=== PATIENT | female | born 1960 | race Caucasian/White ===

== ENCOUNTER 2020-01-13 17:16 | Emergency (ER) | payer SELFPAY ==
[2020-01-13 17:21] VITALS: BP 173/100; PULSE 93; RESP 18; TEMP 36.9; O2SAT 96; BMI 28.5
--- NOTE | 2020-01-13 17:32 | ED_ITS ---
HPI - Fall General: Chief Complaint: Fall Stated Complaint: fall/hit head Time Seen by Provider: 01/13/20 17:27 Source: patient Mode of arrival: ambulatory Limitations: no limitations History of Present Illness: HPI Narrative: Patient reports tripping over her dog's leash 2 days ago and landing striking her left forehead. Patient has some ecchymosis to bilateral eyes with minimal swelling. Patient reports headache and pain with episodes of dizziness. Patient is supposed be on blood pressure medication but does not take it. Patient denies any chest pain, nausea vomiting. Associated symptoms-after fall: Reports headache(s) Review of Systems General: Reports: 10 or more systems reviewed and unremarkable except in HPI and below Neuro: Reports: headache(s) and dizziness Physical Exam Const: COMMON NORMALS: no acute distress and patient oriented x3 GENERAL APPEARANCE: cooperative HENMT: COMMON NORMALS: TM's normal bilaterally and Normal external nose present HEAD & SCALP: other (ecchymosis leana. eye, tenderness left brow) NOSE: Normal external nose present TYMPANIC MEMBRANE: TM's normal bilaterally MOUTH: Normal oral and palatal mucosa present THROAT: posterior oropharynx normal Eye: GENERAL EYE: appearance normal, both eyes and all related structures Neck/C-Spine: COMMON NORMALS: full ROM Lymph: LYMPHATIC: no lymphadenopathy noted Chest: COMMONS NORMALS: normal inspection of the chest Resp: COMMON NORMALS: normal respiratory effort EFFORT & INSPECTION: Yes able to speak in complete sentences Cardio: COMMON NORMALS: regular rate and regular rhythm RATE: regular rate RHYTHM: regular rhythm GI: COMMON NORMALS: non-tender Back/Pelvis: COMMON NORMALS: thoracic and lumbar spine normal to inspection Extremity: COMMON NORMALS: normal to inspection Neuro: COMMON NORMALS: patient oriented x3 and moves all extremities Psych: COMMON NORMALS: mental status grossly normal and cooperative Skin: COMMON NORMALS: no rashes or lesions noted GENERAL SKIN EXAM: no rashes or lesions noted Course Vital Signs: Vital signs: Vital Signs Temperature 98.5 F 01/13/20 17:21 Pulse Rate 93 01/13/20 17:21 Respiratory Rate 18 01/13/20 17:21 Blood Pressure 173/100 01/13/20 17:21 Pulse Oximetry 96 01/13/20 17:21 MDM - Fall MDM Narrative: Medical decision making narrative: Patient comes in today with complaints of contusion to the left side of the forehead. Patient has bruising and mild swelling to the left brow region. Pupils are equal and reactive. Patient moves without any difficulty. No facial palsy. No tongue deviation. Respirations are even lungs are clear to auscultation. No vertebral tenderness of the neck. Reviewed exam with patient recommendations for treatment and follow-up. Differential diagnosis includes contusion, fracture, intracranial bleeding. Patient reported care plan with recommendations for treatment of contusions. Discharge Plan Discharge Patient Disposition: Home Clinical Impression: Contusion of head Qualifiers: Encounter type: initial encounter Contusion of head detail: periocular area Laterality: left Qualified Code(s): S00.12XA - Contusion of left eyelid and periocular area, initial encounter Condition: Stable Prescriptions: No Action amoxicillin See Rx Instructions .ROUTE .COMPLEX RF: 0 Discharge Orders: Discharge Order (Routine); Ordered 01/13/20 Ordered By: David Aguilar Discharge Diet: Usual diet Discharge Activity: Increase activity as tolerated Patient Instructions: Contusion in Adults (ED) Activity Restrictions/Additional Instructions: Activity as tolerated. Drink plenty of fluids. Acetaminophen or ibuprofen for pain. Follow-up with primary care relating elevation in blood pressure. Return to the emergency room as needed for new concerns. Coding Level of Care Code ED [employer] for Tia Valles Exam Comprehensive
--- NOTE | 2020-01-13 17:32 | CTR_ITS ---
PROCEDURE INFORMATION: Exam: CT Maxillofacial Without Contrast Exam date and time: 01/13/2020 5:37 PM Age: 59 years old Clinical indication: Injury or trauma; Fall; Initial encounter; Blunt trauma (contusions or hematomas); Forehead and orbit/periorbital; Bilateral; Additional info: Fall injury TECHNIQUE: Imaging protocol: Computed tomography images of the face without contrast. Radiation optimization: All CT scans at this facility use at least one of these dose optimization techniques: automated exposure control; mA and/or kV adjustment per patient size (includes targeted exams where dose is matched to clinical indication); or iterative reconstruction. COMPARISON: No relevant prior studies available. RADIATION DOSE METRICS: Total DLP (mGy-cm): 722.51 FINDINGS: Orbits: Orbits are normal. Globes are unremarkable. Bones/joints: No acute fracture. Paranasal sinuses: Normal. No air-fluid levels. Soft tissues: Small left periorbital and frontal scalp contusion. CT/CT facial bones wo con* [id number] IMPRESSION: No fracture identified. Radiation Dose CTDIVOL = (mGy): DLP = 722.51 (mGy-cm)
--- NOTE | 2020-01-13 17:32 | CTR_ITS ---
PROCEDURE INFORMATION: Exam: CT Head Without Contrast Exam date and time: 01/13/2020 5:37 PM Age: 59 years old Clinical indication: Injury or trauma; Fall TECHNIQUE: Imaging protocol: Computed tomography of the head without contrast. Radiation optimization: All CT scans at this facility use at least one of these dose optimization techniques: automated exposure control; mA and/or kV adjustment per patient size (includes targeted exams where dose is matched to clinical indication); or iterative reconstruction. COMPARISON: No relevant prior studies available. RADIATION DOSE METRICS: Total DLP (mGy-cm): 764.49 FINDINGS: Brain: The sulci are within normal limits. Mild hypodensities in supratentorial periventricular white matter. 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 No intracranial hemorrhage. Cerebral ventricles: No ventriculomegaly. Bones/joints: Unremarkable. No acute fracture. Paranasal sinuses: Visualized sinuses are unremarkable. No fluid levels. Mastoid air cells: Visualized mastoid air cells are well aerated. Vasculature: No hyperdense artery. Soft tissues: Small left periorbital and frontal scalp contusion suspected. CT/CT head wo con* [id number] IMPRESSION: 1. No fracture or intracranial hemorrhage. 2. Small left periorbital and frontal scalp contusions suspected. 3. Mild microangiopathy. Radiation Dose CTDIVOL = (mGy): DLP = 764.49 (mGy-cm)
[2020-01-13 18:36] VITALS: BP 164/90; PULSE 86; RESP 16; O2SAT 98
== END 2020-01-13 18:37 | disposition home or self-care (01) ==
PROVIDERS: Emergency Provider Nurse Practitioner Family
DX: S00.12XA Contusion of left eyelid and periocular area, initial encounter (principal); W18.09XA Striking against other object with subsequent fall, initial encounter
CPT/HCPCS: 12345; 70450; 70486; 99281; 99282

== ENCOUNTER 2020-09-11 12:04 | Emergency (ER) | payer SELFPAY ==
[2020-09-11 12:11] VITALS: BP 156/92; PULSE 89; RESP 16; TEMP 36.3; O2SAT 95; BMI 27.4
[2020-09-11 12:15] VITALS: BP 156/92; PULSE 92; RESP 18; O2SAT 95
--- NOTE | 2020-09-11 12:26 | PC.PHAR ---
pt states she use to take lisinopril and hasnt taken in months-pt states she has only been taking hair skin and nails -pt states she finished the amoxil 500mg tid filled on 08/27/20 10d/s
--- NOTE | 2020-09-11 12:28 | CT_ITS ---
WS: [id number] CT HEAD WITH AND WITHOUT CONTRAST HISTORY: CVA/Vision disturbance TECHNIQUE: Noncontrast 2.5 mm axial images obtained from the vertex to the skull base. Additional ramana ging performed at 2.5 mm axial images status post IV contrast. Bone and soft tissue windows are revie wed. All CT scans at [facility] use at least one of these dose optimization techniques: a utomated exposure control; mA and/or kV adjustment per patient size (includes targeted exams where do se is matched to clinical indication); or iterative reconstruction. CONTRAST: Omnipaque 300; 95 mL IV. DLP: 1060.47 mGy.cm COMPARISON: 01/13/2020 No acute intracranial hemorrhage, edema or midline shift. No midline shift. Prior RIGHT caudate lacun ar infarcts. No enhancing mass or vascular malformations identified. No abnormality noted at the sella turcica or optic chiasm. No aneurysm. Dural venous sinuses are normally enhancing. Visualized [place] is unremarkable. Paranasal sinuses as visualized: Clear. Mastoid air cells: Clear. Calvarium and scalp: Intact. CT/CT head wo/w con [id number] IMPRESSION: 1. No acute intracranial hemorrhage or edema. 2. No enhancing masses. No aneurysm or mass near the optic chiasm. 3. Prior lacunar infarct RIGHT caudate nucleus.
--- NOTE | 2020-09-11 12:32 | W.ED.GENADLT ---
HPI - General Adult General: Chief complaint: General Medical Stated complaint: vision disturbances, sore throat Time Seen by Provider: 09/11/20 12:23 Source: patient and RN notes reviewed Limitations: no limitations History of Present Illness: HPI narrative: This patient is a 60-year-old female who presents to the emergency department complaint of visual disturbance. 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 States yesterday where she started having a vision defect. Patient does have a long history of reading with readers only but has not had no vision loss. Patient states that she cannot seem to see in certain areas of her visual field. Patient denies headache or history of headaches. Denies any significant medical problems. Will do medical evaluation treat as needed. Onset (ago): day(s) Location: eyes Radiation: non-radiation Relieving factors: none Associated symptoms: Deny chest pain, dyspnea, headache(s), nausea, rash, palpitations or vomiting Review of Systems General: Reports: 10 or more systems reviewed and unremarkable except in HPI and below Const: Denies: fever(s), chills, body aches or fatigue Eyes: Reports: change in vision and blind spots; Denies: blurry vision ENMT: Denies: throat pain, hoarseness or mouth pain Card: Denies: chest pain, palpitations, irregular heart rhythm, edema, swelling of feet/ankles or lightheadedness Resp: Denies: dyspnea, productive cough, non-productive cough, wheezing or pain on inspiration GI: Denies: abdominal pain, nausea or vomiting : Denies: flank pain, difficulty voiding, dysuria, urinary frequency, urinary urgency or urinary hesitancy Musc: Denies: neck pain, back pain, extremity pain, extremity swelling, joint pain, joint swelling, joint redness, joint warmth or limited range of motion Skin/Breast: Denies: rash, pruritus, erythema or skin tenderness Neuro: Denies: headache(s), numbness in extremities or weakness in extremities Psych: Denies: anxiety or depression PFSH ED PFSH: Social History Smoking and tobacco status: never smoked Alcohol intake: never Substance/Drug Use: never Physical Exam Const: COMMON NORMALS: no acute distress, average body habitus, patient oriented x3, no limitations, healthy appearing, alert and well nourished HENMT: COMMON NORMALS: normocephalic, atraumatic, hearing grossly normal bilaterally, external ears normal, EAC's normal, TM's normal bilaterally, Normal external nose present, Normal nasal mucous membranes and turbinates present, moist oral mucous membranes, oropharynx normal, dentition normal and gingiva normal HEAD & SCALP: normocephalic and atraumatic NOSE: Normal external nose present and Normal nasal mucous membranes and turbinates present EXTERNAL EAR: Yes external ears normal EXTERNAL AUDITORY CANAL: EAC's normal TYMPANIC MEMBRANE: TM's normal bilaterally Eye: COMMON NORMALS: Equal, round and reactive pupils present and conjunctivae normal ALIGNMENT: Yes alignment normal PERIORBITAL: periorbital findings normal EYELID: eyelids normal CONJUNCTIVA: Yes conjunctivae normal SCLERA: sclerae normal CORNEA: Yes corneas normal PUPIL: Yes Equal, round and reactive pupils present OTHER: Patient has hemianopsia affecting both eyes to the right side of each visual field. Of the vertical. See picture below EYE IMAGES: 1. Right lateral defect in visual field 2. Right lateral defect and vision field Neck/C-Spine: COMMON NORMALS: full ROM, no lymphadenopathy, supple, no meningeal signs, no JVD, Thyroid normal and No carotid bruits THYROID: Thyroid normal Chest: COMMONS NORMALS: normal inspection of the chest, normal palpation of entire chest wall, normal inspection of the breasts and normal palpation of the breasts Breast/axilla inspection: Yes normal inspection of the breasts BREAST/AXILLA PALPATION: Yes normal palpation of the breasts Resp: COMMON NORMALS: normal respiratory effort, No retractions, No use of accessory muscles, clear to auscultation bilaterally and percussion normal AUSCULTATION: clear to auscultation bilaterally PERCUSSION: percussion normal Cardio: COMMON NORMALS: no JVD, regular rate, regular rhythm, S1 normal heart sound present, S2 normal heart sound present, No gallops present (Cardio), No clicks present (Cardio), No murmurs present (Cardio), No rub (Cardio) and Peripheral pulses 2+ throughout RATE: regular rate RHYTHM: regular rhythm HEART SOUNDS: S1 normal heart sound present and S2 normal heart sound present PERIPHERAL PULSES: Peripheral pulses 2+ throughout GI: COMMON NORMALS: Normal to inspection, nondistended, normoactive bowel sounds present, Soft to palpation, non-tender, No hepatosplenomegaly present, no masses and no bruits PALPATION: Yes Soft to palpation and Yes No hepatosplenomegaly present : COMMON NORMALS: Yes no CVA tenderness, Yes normal external appearance, Yes normal appearance of the vagina, Yes normal appearance of the cervix, Yes normal bimanual exam, Yes No adnexal tenderness and Yes no masses BLADDER/KIDNEY EXAM: Yes no CVA tenderness BIMANUAL EXAM - VAGINA & UTERUS: Yes normal bimanual exam Back/Pelvis: COMMON NORMALS: no CVA tenderness, thoracic and lumbar spine normal to inspection, no thoracic nor lumbar tenderness, thoraco-lumbar ROM normal and straight leg raise negative bilaterally Extremity: COMMON NORMALS: normal to inspection, full ROM, capillary refill normal, no joint enlargement, no clubbing, cyanosis or edema, no calf tenderness and no pedal edema Neuro: COMMON NORMALS: patient oriented x3 SENSORIUM/ORIENTATION: Yes alert MENINGEAL SIGNS: Yes no meningeal signs Course Reevaluation(s): Reevaluation #1: Patient states visual field defect is still present. Patient described that yesterday she thought she had a little sinus headache but then resolved and went to bed. Woke up and had vision changes as they are now. Time: 13:53 Reevaluation #2: Patient states understanding of all instructions given by Dr. Kelly. Time: 17:09 Consultations: Consultation #1: I did discuss at length with Dr. Kelly neurology she request that we do a stat MRA of the head and neck with contrast. She states she will see the patient. Time: 13:53 Consultation #2: Neurology to see patient. Dr. Kelly will see patient shortly. Time: 15:56 Consultation #3: Dr. Kelly requested the patient be discharged home on aspirin and Plavix we ordered an event monitor patient placed on Lipitor and have an MRI as an outpatient tomorrow as an outpatient patient is to follow-up with Dr. Kelly within the week. Time: 17:09 Vital Signs: Vital signs: Vital Signs Temperature 97.3 F L 09/11/20 12:11 Pulse Rate 84 09/11/20 14:01 Respiratory Rate 18 09/11/20 12:47 Blood Pressure 155/108 09/11/20 14:01 Pulse Oximetry 96 09/11/20 14:01 MDM - General Adult MDM Narrative: Medical decision making narrative: This patient is a 60-year-old female who presents to the emergency department complaint of visual disturbance. 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 States yesterday where she started having a vision defect. Patient does have a long history of reading with readers only but has not had no vision loss. Patient states that she cannot seem to see in certain areas of her visual field. Patient denies headache or history of headaches. Denies any significant medical problems. Medical Records: Attestation: I reviewed the patient's medical records. Lab Data: Attestation: I reviewed the patient's lab results. Labs: Lab Results 09/11/20 09/11/20 09/11/20 Range/Units 12:39 12:39 12:45 WBC 6.7 (4.0-10.0) 10^3/ uL RBC 5.03 (4.1-5.3) 10^6/u L Hgb 15.0 (11.5-15.3) g/dL Hct 43.4 (37.0-47.0) % MCV 86.3 (81-99) fL MCH 29.8 (28.0-34.0) pg MCHC 34.6 (30.0-36.0) g/dL RDW 11.7 L (12.1-15.1) % Plt Count 267 (130-400) 10^3/c mm MPV 11.2 H (7.4-10.4) fL Neut % (Auto) 60.4 % Lymph % (Auto) 30.4 % [place] % (Auto) 6.3 % Eos % (Auto) 2.1 % Baso % (Auto) 0.7 % Neut # (Auto) 4.04 (1.8-7.7) 10^3/u L Lymph # (Auto) 2.0 (0.8-4.8) 10^3/u L [place] # (Auto) 0.4 (0.2-0.9) 10^3/u L Eos # (Auto) 0.1 (0.0-0.8) 10^3/u L Baso # (Auto) 0.1 (0.0-0.1) 10^3/u L Nucleated RBC % (a uto) 0 % Nucleated RBCs # 0.0 /100WBC PT 13.00 (12.1-14.9) SECO NDS INR 0.96 (0.8-1.2) APTT 27.6 (23.9-36.7) SECO NDS Sodium 135 L (136-145) mmol/L Potassium 4.3 (3.5-5.1) mmol/L Chloride 99 (98-107) mmol/L Carbon Dioxide 24 (22-29) mmol/L Anion Gap 16.3 (5-19) BUN 9 (6-20) mg/dL Creatinine 0.4 L (0.5-0.9) mg/dL GFR Calculation 163.4 H (90-130) mL/min Glucose 350 H (65-115) mg/dL Calculated Osmolal ity 293 (285-295) mOsm/k g Calcium 9.0 (8.5-10.5) mg/dL Total Bilirubin 0.6 (0.15-1.2) mg/dL AST 15 (0-32) U/L ALT 17 (0-33) U/L Alkaline Phosphata se 103 (35-105) IU/L Total Protein 6.8 (6.6-8.7) g/dL Albumin 4.1 (3.5-5.2) g/dL Globulin 2.7 (1.3-4.6) g/dL Urine Color (Yellow) Urine Appearance (CLEAR) Urine pH (5-7) Ur Specific Gravit y (1.005-1.030) Urine Protein (Negative) Urine Glucose (UA) (Normal) Urine Ketones (Negative) Urine Blood (Negative) Urine Nitrate (Negative) Urine Bilirubin (Negative) Urine Urobilinogen (Negative) mg/dL Ur Leukocyte Zenia ase (Negative) Urine RBC (0-2) /hpf Urine WBC (0-5) /hpf Ur Squamous Epith Cells (0-5) /hpf Amorphous Sediment Urine Bacteria (NONE) /hpf Urine Opiates Scre en (Negative) ng/mL Ur Barbiturates Sc reen (Negative) ng/mL Ur Phencyclidine S crn (Negative) ng/mL Ur Amphetamines Sc reen (Negative) ng/mL U Benzodiazepines Scrn (Negative) ng/mL Urine Cocaine Scre en (Negative) ng/mL U Marijuana (THC) Screen (Negative) ng/mL 05/24/21 05/24/21 Range/Units 12:45 12:45 WBC (4.0-10.0) 10^3/ uL RBC (4.1-5.3) 10^6/u L Hgb (11.5-15.3) g/dL Hct (37.0-47.0) % MCV (81-99) fL MCH (28.0-34.0) pg MCHC (30.0-36.0) g/dL RDW (12.1-15.1) % Plt Count (130-400) 10^3/c mm MPV (7.4-10.4) fL Neut % (Auto) % Lymph % (Auto) % [place] % (Auto) % Eos % (Auto) % Baso % (Auto) % Neut # (Auto) (1.8-7.7) 10^3/u L Lymph # (Auto) (0.8-4.8) 10^3/u L [place] # (Auto) (0.2-0.9) 10^3/u L Eos # (Auto) (0.0-0.8) 10^3/u L Baso # (Auto) (0.0-0.1) 10^3/u L Nucleated RBC % (a uto) % Nucleated RBCs # /100WBC PT (12.1-14.9) SECO NDS INR (0.8-1.2) APTT (23.9-36.7) SECO NDS Sodium (136-145) mmol/L Potassium (3.5-5.1) mmol/L Chloride (98-107) mmol/L Carbon Dioxide (22-29) mmol/L Anion Gap (5-19) BUN (6-20) mg/dL Creatinine (0.5-0.9) mg/dL GFR Calculation (90-130) mL/min Glucose (65-115) mg/dL Calculated Osmolal ity (285-295) mOsm/k g Calcium (8.5-10.5) mg/dL Total Bilirubin (0.15-1.2) mg/dL AST (0-32) U/L ALT (0-33) U/L Alkaline Phosphata se (35-105) IU/L Total Protein (6.6-8.7) g/dL Albumin (3.5-5.2) g/dL Globulin (1.3-4.6) g/dL Urine Color Yellow (Yellow) Urine Appearance Sl hazy (CLEAR) Urine pH 5 (5-7) Ur Specific Gravit y 1.015 (1.005-1.030) Urine Protein Neg (Negative) Urine Glucose (UA) 4+ H (Normal) Urine Ketones Negative (Negative) Urine Blood 2+ H (Negative) Urine Nitrate Negative (Negative) Urine Bilirubin Neg (Negative) Urine Urobilinogen Norm (Negative) mg/dL Ur Leukocyte Zenia ase Trace H (Negative) Urine RBC 0-4 H (0-2) /hpf Urine WBC 5-10 H (0-5) /hpf Ur Squamous Epith Cells 10-15 H (0-5) /hpf Amorphous Sediment Not Reportable Urine Bacteria 3+ H (NONE) /hpf Urine Opiates Scre en Negative (Negative) ng/mL Ur Barbiturates Sc reen Negative (Negative) ng/mL Ur Phencyclidine S crn Negative (Negative) ng/mL Ur Amphetamines Sc reen Negative (Negative) ng/mL U Benzodiazepines Scrn Negative (Negative) ng/mL Urine Cocaine Scre en Negative (Negative) ng/mL U Marijuana (THC) Screen Negative (Negative) ng/mL Imaging Data^: CT Head: Attestation: I personally reviewed and interpreted this imaging study as follows: Radiologist's impression: IMPRESSION: 1. No acute intracranial hemorrhage or edema. 2. No enhancing masses. No aneurysm or mass near the optic chiasm. 3. Prior lacunar infarct RIGHT caudate nucleus. MRA/MRI: Attestation: I personally reviewed and interpreted this imaging study as follows: My impression: Discussed with Dr. Kelly neurology she will see patient so far negative for acute findings. Radiologist's impression: Negative for acute findings Discharge Plan Discharge Patient Disposition: Home Clinical Impression: Hemianopia, Diabetes Condition: Stable Prescriptions: New Adult Aspirin Regimen 81 mg tablet,delayed release (DR/EC) 81 mg PO DAILY Qty: 30 RF: 0 Plavix 75 mg tablet 75 mg PO DAILY Qty: 30 RF: 0 Lipitor 20 mg tablet 20 mg PO DAILY Qty: 30 RF: 0 metformin 850 mg tablet 850 mg PO DAILY Qty: 30 RF: 0 No Action Hair,Skin and Nails Tablet 1 tab PO DAILY RF: 0 Discharge Orders: Discharge ED (Routine); Ordered 09/11/20 Ordered By: Adrian Gant Other Ambulatory Orders: CV carotid duplex BI* [id number] (Routine) Timeframe: 3 Days Facility: [facility] - Location: Radiology Art Kenn VELASQUEZ Ordered By: Adrian Gant [place] cardiac event monitor (Routine) Timeframe: 3 Days Facility: [facility] - Location: Cardiac Diagnostic Laboratory Ordered By: Adrian Gant Referrals: Adrian Gant MD [Emergency Provider] - Ayana Kelly MD [Physician] - Jing Calzada DO [Physician] - Discharge Diet: Diabetic Discharge Activity: Limit activity as instructed Patient Instructions: Opioid Safety Activity Restrictions/Additional Instructions: Take your medications as instructed. Monitor glucose closely monitor diet. You should be having a MRI of the brain scheduled as an outpatient tomorrow. Along with other tests as discussed by Dr. Kelly. Follow-up with Dr. Kelly within 5 days. Follow-up with nurse practitioner Zheng in a few days. Coding Level of Care Code ED Transportation Planning Technician for Chg Fwd Exam Comprehensive
[2020-09-11 12:47] VITALS: BP 156/92; PULSE 90; RESP 18; O2SAT 95
[2020-09-11 12:49] LABS: Basophils # 0.1 10^3/uL (0.0-0.1); Basophils % 0.7 %; Eosinophils # 0.1 10^3/uL (0.0-0.8); Eosinophils % 2.1 %; Hematocrit 43.4 % (37.0-47.0); Lymphocytes % 30.4 %; Mean Corpuscular HGB Conc 34.6 g/dL (30.0-36.0); Mean Corpuscular Hemoglobin 29.8 pg (28.0-34.0); Mean Corpuscular Volume 86.3 fL (81-99); Mean Platelet Volume 11.2 fL (7.4-10.4); Monocytes # 0.4 10^3/uL (0.2-0.9); Monocytes % 6.3 %; Neutrophils # 4.04 10^3/uL (1.8-7.7); Neutrophils % 60.4 %; Nucleated Red Blood Cells % 0 %; Platelet Count 267 10^3/cmm (130-400); Red Blood Count 5.03 10^6/uL (4.1-5.3); Red Cell Distribution Width 11.7 % (12.1-15.1); White Blood Count 6.7 10^3/uL (4.0-10.0)
[2020-09-11] MEDS: iohexol 300 mg/mL 100 mL Btl IV (13:01)
[2020-09-11 13:04] LABS: INR 0.96 (0.8-1.2); Partial Thromboplastin Time 27.6 SECONDS (23.9-36.7)
[2020-09-11 13:10] LABS: Alanine Aminotransferase 17 U/L (0-33); Albumin Level 4.1 g/dL (3.5-5.2); Alkaline Phosphatase 103 IU/L (35-105); Anion Gap 16.3 (5-19); Aspartate Amino Transferase 15 U/L (0-32); Blood Urea Nitrogen 9 mg/dL (6-20); Carbon Dioxide 24 mmol/L (22-29); Chloride 99 mmol/L (98-107); Globulin 2.7 g/dL (1.3-4.6); Glomerular Filtration Rate 163.4 mL/min (90-130); Glucose 350 mg/dL (65-115); Osmolality Calculated 293 mOsm/kg (285-295); Potassium 4.3 mmol/L (3.5-5.1); Sodium 135 mmol/L (136-145); Total Bilirubin 0.6 mg/dL (0.15-1.2); Total Protein 6.8 g/dL (6.6-8.7)
[2020-09-11 13:12] LABS: Add Urine Microscopic? YES; Bilirubin Urine Neg (Negative); Blood Urine 2+ (Negative); Glucose Urine UA 4+ (Normal); Ketones Urine Negative (Negative); Leukocyte Esterase Urine Trace (Negative); Nitrate Urine Negative (Negative); Protein Urine Neg (Negative); Specific Gravity, Urine 1.015 (1.005-1.030); Urine Appearance SL Hazy (CLEAR); Urine Color Yellow (Yellow); Urobilinogen Urine Norm (Negative); pH Urine 5 (5-7)
[2020-09-11 13:13] LABS: Bacteria Urine 3+ /hpf
[2020-09-11 13:16] LABS: Add Urine Culture? No; Amphetamines Screen Urine Negative (Negative); Barbiturates Screen Urine Negative (Negative); Benzodiazepines Screen Urine Negative (Negative); Cocaine Screen Urine Negative (Negative); Opiate Screen Urine Negative (Negative); PCP Screen Urine Negative (Negative); RBC Urine 0-4 /hpf (0-2); THC Screen Urine Negative (Negative)
--- NOTE | 2020-09-11 13:50 | MR_ITS ---
WS: [id number] MRA CAROTID ARTERIES HISTORY: Hemianopsia COMPARISON: None available. TECHNIQUE: MRA is performed with intravenous gadolinium. MIP and source images are reviewed. This is a nondiagnostic examination for significant carotid artery stenosis. There is overlapping eleazar ous and arterial flow making this examination nondiagnostic. Cannot exclude significant stenosis or d issection. MR/MR angio neck w con* [id number] IMPRESSION: Nondiagnostic evaluation of the carotid arteries.
--- NOTE | 2020-09-11 13:50 | MR_ITS ---
WS: [id number] MRA ANGIOGRAPHY [place] HISTORY: Hemianopsia COMPARISON: None available. TECHNIQUE: 3-D MR angiography is performed of the [place]. All images are reviewed including source images. Distal vertebral and basilar arteries are intact with no significant stenosis or plaque. Posterior ce rebral arteries are normal course and caliber. Posterior communicating arteries are both patent. Intracranial portion of the internal carotid arteries are normal course and caliber. No significant a therosclerosis, stenosis or aneurysm identified. Middle and anterior cerebral arteries are both paten t with no significant disease. Anterior communicating artery is also normal. MR/MR angio head wo con [id number] IMPRESSION: Normal MRA [place].
[2020-09-11 14:01] VITALS: BP 155/108; PULSE 84; O2SAT 96
--- NOTE | 2020-09-11 17:00 | PM.CONSULT ---
Providers/Reason For Consult Consulting Physican/Specialty*: Adrian Gant MD/emergency department Reason for Consult*: Acute stroke Primary Care Provider: None History of Present Illness History of Present Illness Kim Lara is a 60 year old female who presented with right homonymous hemianopsia. She was complaining of a headache. 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 She worked Friday night at [employer] and then went into her workplace yesterday morning and discovered that she was bumping up against another employee as she walked by. The employee was unhappy and said did not you see me and she realized that she did not. By the time she had failed to improve this morning she decided to come to the ER and be evaluated. Her CT scan of the head was unremarkable. The emergency physician called me about what appeared to him to be an homonymous hemianopsia of unknown time of onset with negative CT and I asked for an MRI with MRA. Only the MRA was completed due to miscommunication but the consulting utility forester films do not show any abnormalities. The patient feels the same as she did yesterday. She is sure that she has not bumped into people when she was working at [employer] before but she is not sure she did not have the trouble Friday night. She has lost a lot of weight. She knows that she has hypertension but she has not been keeping track of her blood pressure and she does not have a family physician. Her blood pressure was 155/108 today. She is not diabetic. She is lost 40 pounds by effort and a lot of activity. She exercises every day. Review of Systems General: Reports: 10 or more systems reviewed and unremarkable except in HPI and below Const: Reports: change in weight; Denies: fever(s) or body aches Eyes: Reports: change in vision ENMT: Denies: disequilibrium Card: Denies: chest pain, palpitations, irregular heart rhythm or lightheadedness Resp: Reports: other (She is a non smoker); Denies: dyspnea GI: Denies: abdominal pain, nausea or vomiting : Denies: difficulty voiding Musc: Denies: neck pain or back pain Neuro: Reports: headache(s); Denies: numbness in extremities, weakness in extremities, sensory changes, lack of coordination or difficulty walking Psych: Denies: anxiety or depression Endo: Denies: polyuria or polydipsia Heriberto/Lymph: Denies: easy bruising Meds/Allergies Home Medications and Allergies Home Medications Medication Instructions Recorded Confirmed Last Taken Type multivitamin with minerals 1 tab PO DAILY 09/11/20 09/11/20 09/11/20 09:00 History [Hair,Skin and Nails] Allergies Allergy/AdvReac Type Severity Reaction Status Date / Time No Known Allergies Allergy Verified 09/11/20 12:26 PFSH Acute PFSH: Social History Smoking and tobacco status: never smoked Alcohol intake: never Substance/Drug Use: never Vitals/I&O/Wt Last Vital Signs Temp 97.3 F L 09/11/20 12:11 Pulse 84 09/11/20 14:01 Resp 18 09/11/20 12:47 BP 155/108 09/11/20 14:01 Pulse Ox 96 09/11/20 14:01 Weight last 48 hrs Weight 160 lb Physical Exam Narrative: EXAM NARRATIVE: GENERAL: The patient was well-nourished with a healthy appearance and appropriately groomed. MENTAL STATUS: Orientation was full to 10 of 10 questions of orientation. Speech was fluent without word hesitation. No difficulty following a complex command. The affect was euthymic. CRANIAL NERVES: She has a right upper quadrantanopsia, homonymous with inclusion of the macula. She has a right homonymous inferior quadrantanopsia with sparing of the macula. Extraocular movements were full without nystagmus. Both slow pursuit and saccadic eye movements were normal. PERRLA. Face was symmetric at rest and with grimace. Facial sensation was intact in all three distributions of the fifth cranial nerve bilaterally to touch. Hearing was intact to soft spoken voice.. Tongue and palate were midline at rest and with protrusion of the tongue and elevation of the palate. Shoulders were symmetric at rest and with shoulder shrug. MOTOR: There was no drift of the extended arms. Fine movements in the hands were rapid and symmetric. Toe tapping was rapid and symmetric. Power was 5/5 in all the muscles of all four extremities tested individually. Bulk and tone were normal. SENSATION: Pin, touch intact in the four extremities distally. COORDINATION: Svrefq-ismj-dcvvax, xcfi-qmer-adlv and rapid alternating movements were performed smoothly without evidence of tremor or ataxia. Stance was stable with the eyes open, as well as the eyes closed. DEEP TENDON REFLEXES: 2/4 throughout. GAIT: She was able to stand at the bedside and march in place. There was no midline instability. HEENT: Normocephalic without dysmorphic features. Conjunctivae were not injected and sclerae were nonicteric. Temporal artery pulses were strong bilaterally and the arteries were nontender. NECK: Carotid upstroke was strong bilaterally without bruits. The thyroid was not enlarged and there were no palpable lymph nodes. CHEST: Clear to auscultation. CARDIOVASCULAR: The heart sounds were normal without murmur or gallop. Regular rate and rhythm. EXTREMITIES: There was no edema or cyanosis. The skin was unremarkable. The spine exhibited normal thoracic kyphosis and normal lumbar lordosis without deformities. 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 Her MR angiogram does not show occlusive disease in her posterior or anterior circulation. The cause of her stroke is unknown. It is small enough that it did not show up on the consulting utility forester images for her MR angiogram or on her CT scan of the head. A personal risk factor profile was generated for this patient. The risk factors and plan were reviewed.. Tests were included including information on all test results. Hypertension goal 120/80 current 155/108 plan allow permissive hypertension for now since she is having an acute stroke. I will plan on starting her on antihypertensive therapy when I see her next week. Recurrent stroke goal reduce risk: plan aspirin 325 mg, Plavix/Clopidogrel 75 mg, Lipitor/Atorvastatin 40 mg, continue vigorous exercise 30 minutes a day. Smoking: goal is stop smoking smoking no Diabetes mellitus: goal hemoglobin A1c 6.2 or less my number: Her blood sugar is 350 on a random sample. I talked with Dr. Gant and ask him to start her on Metformin. I mistakenly told her she did not have diabetes because I did not see her blood sugar and it is extremely high. Hyperlipidemia: Start Lipitor 40 mg daily Atrial fibrillation : No how determined: EKG examination plan 20-day monitor Metabolic syndrome: No plan: Reviewed Mediterranean diet Sedentary lifestyle no plan 30 minutes of vigorous exercise per day Carotid artery narrowing: goal: No stenosis actual MRA negative reviewed with her Sleep apnea: Yes no plan I talked with Dr. Gant. I agreed to see this patient in a week. Stat MRI this week to better evaluate her anatomy. I told her to return to the ER if she is worse. I asked her to push p.o. fluids. 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
--- NOTE | 2020-09-12 12:21 | DCPLANNER ---
Addendum entered by Ai Heath 09/13/20 12:53: Patient attended MRI scheduled for 09.12.20. Addendum entered by Ai Heath 09/12/20 14:02: Patient called pillowcase turner asking about getting established with a primary care physician. Patient stated that she would like to be established with Dr. Calzada. servicing manager called [facility], spoke with Pooja, gave clinic patients information. A follow up appointment was scheduled for September at 1:[address] Calzada. servicing manager called patient and gave patient the appointment information. Original Note: servicing manager had message to schedule an out patient MRI, pillowcase turner faxed signed order to centralized scheduling. A follow up appointment for an MRI was scheduled for 09.12.20 at 10:00. servicing manager called patient and gave patient the appointment information. servicing manager had message to schedule an event monitor for patient. servicing manager faxed signed order to [facility], will call for appointment information. servicing manager also had message to schedule a follow up appointment for patient with Dr. Kelly. servicing manager emailed patients information to Leonora at the office of Dr. Kelly. Patients information will be printed and reviewed. Clinic will call patient with appointment information.
--- NOTE | 2020-09-13 12:49 | DCPLANNER ---
Patient has a follow up appointment scheduled for , September 14, 2020 at 1:[address] Kelly. Clinic will call patient with appointment information. Patient has an appointment scheduled for AugustOctober 16, 2020 at 8:00. Centralized scheduling will call patient with appointment information.
--- NOTE | 2020-11-15 08:20 | DCPLANNER ---
Patient had a follow up appointment scheduled for 09.21.[address] Calzada at [facility] to establish care - patient did attend. Patient had a follow up appointment scheduled for 09.14.[address] Kelly - patient did attend. Patient had a follow up appointment scheduled for 09.19.20 for a 21 day event monitor at [facility] - patient did attend Patient had a follow up appointment scheduled for 10.16.20 for a carotid - patient did not attend.
== END 2020-09-11 17:39 | disposition home or self-care (01) ==
PROVIDERS: Emergency Provider Emergency Medicine
DX: H53.47 Heteronymous bilateral field defects (principal); E11.9 Type 2 diabetes mellitus without complications
CPT/HCPCS: 70470; 70544; 70548; 80053; 80306; 81001; 85025; 85610; 85730; 99284; A9577; Q9967

== ENCOUNTER 2020-09-12 10:08 | Outpatient (CLI) | payer SELFPAY ==
--- NOTE | 2020-09-12 10:50 | MR_ITS ---
WS: [id number] MRI BRAIN WITH AND WITHOUT CONTRAST HISTORY: I63.532 - Cerebral infarction due to unspecified occlusion. COMPARISON: CT head 09/11/2020 TECHNIQUE: Multiplanar imaging performed through the brain with MultiHance 14 ml's IV. Acute infarct involving the medial LEFT temporal lobe measures 6 x 12 mm. Infarct is just medial to t he temporal horn lateral ventricle. No associated hemorrhage. No serpiginous enhancement. No addition al areas of acute infarction. Additional mild microvascular ischemic disease. Prior lacunar infarct in the RIGHT neal radiata. Ventricles and extra-axial spaces are normal. Clivus and pituitary gland are normal. Visualized posterior fossa and brainstem are also normal. No enhancing mass is identified. There is a short segment area of increased enhancement in the LEFT t halamus which may be a very small venous angioma. No hemorrhage. Dural venous sinuses are normal. Paranasal sinuses: Well aerated with no significant disease. Mastoid air cells: Normal. Calvarium and scalp: Normal. MR/MR head wo/w con [id number] IMPRESSION: 1. Small acute infarct involving the medial LEFT temporal lobe without hemorrh age. This is likely involving Chacon loop which is part of the inferior optic ra diation in the mid temporal lobe resulting in the visual field defect. 2. No hemorrhage or significant mass effect. 3. Additional small lacunar infarct in the RIGHT neal radiata.
[2020-09-12] MEDS: gadobenate dimeglumine 20 mL vial IV (11:42)
== END 2020-09-12 10:09 | disposition home or self-care (01) ==
LOC: RADSHAW 10:12
PROVIDERS: Visit Provider Emergency Medicine
DX: I63.532 Cerebral infarction due to unspecified occlusion or stenosis of left posterior cerebral artery (principal); I63.81 Other cerebral infarction due to occlusion or stenosis of small artery
CPT/HCPCS: 70553; A9577

== ENCOUNTER → 2020-09-14 12:51 | Outpatient (BNVA) | payer SELFPAY | PROVIDERS: PCP Family Medicine; Referring Provider Emergency Medicine; Visit Provider Specialist | DX: I10 Essential (primary) hypertension (principal); E11.65 Type 2 diabetes mellitus with hyperglycemia; Z79.84 Long term (current) use of oral hypoglycemic drugs; Z86.73 Personal history of transient ischemic attack (TIA), and cerebral infarction without residual deficits; R20.0 Anesthesia of skin; R20.2 Paresthesia of skin | CPT/HCPCS: 99205 ==

== ENCOUNTER 2020-09-14 14:54 | Outpatient (CLI) | payer SELFPAY ==
[2020-09-14 16:13] LABS: Estmated Average Glucose 266; Hemoglobin A1C 10.9 % (4.0-6.0)
[2020-09-14 16:34] LABS: C Reactive Protein 5.1 mg/L (0.0-4.9)
[2020-09-14 18:49] LABS: Erythrocyte Sedimentation Rate > 120 mm/hr (0-15)
[2020-09-15 11:43] LABS: COMPLEMENT COMPONENT C3C 199 mg/dL (83-193); COMPLEMENT COMPONENT C4C 30 mg/dL (15-57)
[2020-09-15 14:27] LABS: ANA SCREEN, IFA NEGATIVE (NEGATIVE); THYROID PEROXIDASE ANTIBODIES 4 IU/mL (<9)
[2020-09-15 15:03] LABS: CENTROMERE B ANTIBODY <1.0 NEG AI (<1.0 NEG); JO-1 ANTIBODY <1.0 NEG AI (<1.0 NEG); RNP ANTIBODY <1.0 NEG AI (<1.0 NEG); SCL-70 ANTIBODY <1.0 NEG AI (<1.0 NEG); SJOGREN'S ANTIBODY (SS-A) <1.0 NEG AI (<1.0 NEG); SM ANTIBODY <1.0 NEG AI (<1.0 NEG); SS-B <1.0 NEG AI (<1.0 NEG)
[2020-09-21 00:23] LABS: DNA AB (DS) CRITHIDIA,IFA NEGATIVE (NEGATIVE)
== END 2020-09-14 14:55 | disposition home or self-care (01) ==
LOC: LAB 14:57
PROVIDERS: PCP Family Medicine; Visit Provider Specialist
DX: R20.0 Anesthesia of skin (principal); R20.2 Paresthesia of skin; E11.9 Type 2 diabetes mellitus without complications
CPT/HCPCS: 36415; 83036; 85300; 85303; 85306; 85307; 85651; 86140; 86160; 86162; 86235; 86255; 86376

== ENCOUNTER 2020-09-25 08:10 | Outpatient (CLI) | payer SELFPAY ==
[2020-09-25 08:45] LABS: Basophils # 0.1 10^3/uL (0.0-0.1); Basophils % 1.6 %; Eosinophils # 0.1 10^3/uL (0.0-0.8); Eosinophils % 2.9 %; Hematocrit 41.5 % (37.0-47.0); Hemoglobin 14.9 g/dL (11.5-15.3); INR 0.98 (0.8-1.2); Lymphocytes # 1.3 10^3/uL (0.8-4.8); Lymphocytes % 28.9 %; Mean Corpuscular HGB Conc 35.9 g/dL (30.0-36.0); Mean Corpuscular Hemoglobin 30.1 pg (28.0-34.0); Mean Corpuscular Volume 83.8 fL (81-99); Mean Platelet Volume 10.8 fL (7.4-10.4); Monocytes # 0.2 10^3/uL (0.2-0.9); Monocytes % 5.4 %; Nucleated Red Blood Cells % 0 %; Platelet Count 250 10^3/cmm (130-400); Red Blood Count 4.95 10^6/uL (4.1-5.3); Red Cell Distribution Width 11.1 % (12.1-15.1); White Blood Count 4.4 10^3/uL (4.0-10.0)
[2020-09-25 08:57] LABS: Blood Urea Nitrogen 12 mg/dL (6-20); C Reactive Protein 23.2 mg/L (0.0-4.9); Calcium 9.1 mg/dL (8.5-10.5); Carbon Dioxide 27 mmol/L (22-29); Chloride 95 mmol/L (98-107); Glomerular Filtration Rate 56.7 mL/min (90-130); Glucose 149 mg/dL (65-115); Osmolality Calculated 283 mOsm/kg (285-295); Sodium 135 mmol/L (136-145)
[2020-09-25 08:59] LABS: Bilirubin Urine Neg (Negative); Blood Urine 3+ (Negative); Glucose Urine UA 4+ (Normal); Ketones Urine 1+ (Negative); Leukocyte Esterase Urine Negative (Negative); Nitrate Urine Negative (Negative); Protein Urine Neg (Negative); Specific Gravity, Urine 1.015 (1.005-1.030); Urine Appearance Hazy (CLEAR); Urine Color Yellow (Yellow); Urobilinogen Urine Norm (Negative); pH Urine 5 (5-7)
[2020-09-25 09:01] LABS: Bacteria Urine TRACE /hpf; RBC Urine >100 /hpf (0-2); WBC Urine 0-4 /hpf (0-5)
[2020-09-25 09:02] LABS: Add Urine Culture? Yes; Mucus Urine TRACE /hpf
[2020-09-25 09:30] LABS: Erythrocyte Sedimentation Rate 33 mm/hr (0-15)
[2020-09-25 09:39] LABS: Slide Review Slide Review Perform
== END 2020-09-25 08:11 | disposition home or self-care (01) ==
LOC: LAB 08:12
PROVIDERS: Internal Medicine; PCP Family Medicine; Visit Provider Specialist
DX: I63.532 Cerebral infarction due to unspecified occlusion or stenosis of left posterior cerebral artery (principal); R20.0 Anesthesia of skin; R20.2 Paresthesia of skin; R30.0 Dysuria
CPT/HCPCS: 36415; 80048; 81001; 85025; 85610; 85651; 86140; 87077; 87086; 87186

== ENCOUNTER 2020-09-26 01:24 | Emergency (ER) | payer SELFPAY ==
[2020-09-26 01:33] VITALS: BP 136/96; PULSE 94; RESP 16; TEMP 36.8; O2SAT 97; BMI 26.4
[2020-09-26 01:35] VITALS: PULSE 99; RESP 17; O2SAT 98
--- NOTE | 2020-09-26 01:39 | ED_ITS ---
HPI - Allergic Reaction General: Chief complaint: Allergic Reaction Stated complaint: poss reaction to medication Time Seen by Provider: 09/26/20 01:27 Source: patient Mode of arrival: ambulatory Limitations: no limitations History of Present Illness: HPI narrative: 60-year-old female states she started a new medicine on Friday started have a rash. Patient was seen by physician yesterday who did give her a dose of Benadryl. She states that since then the rash is worsened. She does have a maculopapular rash to her legs arms and trunk. It is very pruritic in nature. She denies any shortness of breath. She denies any throat swelling. Associated symptoms: Deny abdominal pain, nausea or vomiting Review of Systems Const: Denies: fever(s), chills, body aches or change in appetite Eyes: Denies: blurry vision or eye discomfort ENMT: Denies: throat pain or dental pain Card: Denies: chest pain Resp: Denies: dyspnea GI: Denies: abdominal pain, nausea, vomiting or diarrhea : Denies: dysuria Musc: Denies: neck pain or back pain Skin/Breast: Reports: rash Neuro: Denies: headache(s) Psych: Denies: depression Heriberto/Lymph: Denies: easy bruising All/Imm: Denies: urticaria PFSH ED PFSH: Medical History Hypertension Left acute arterial ischemic stroke, 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) Type 2 diabetes mellitus, without long-term current use of insulin Surgical History H/O section Family History Mother Cancer Social History Smoking and tobacco status: never smoked Alcohol intake: never Physical Exam Const: COMMON NORMALS: no acute distress, patient oriented x3 and healthy appearing HENMT: COMMON NORMALS: normocephalic and atraumatic HEAD & SCALP: normocephalic and atraumatic Eye: COMMON NORMALS: Equal, round and reactive pupils present and EOMs intact bilaterally PUPIL: Yes Equal, round and reactive pupils present Neck/C-Spine: COMMON NORMALS: full ROM and supple Chest: COMMONS NORMALS: normal inspection of the chest and normal palpation of entire chest wall Resp: COMMON NORMALS: normal respiratory effort, No retractions, No use of accessory muscles and clear to auscultation bilaterally AUSCULTATION: clear to auscultation bilaterally Cardio: COMMON NORMALS: regular rate, regular rhythm and No murmurs present (Cardio) RATE: regular rate RHYTHM: regular rhythm GI: COMMON NORMALS: Normal to inspection, nondistended, normoactive bowel sounds present, Soft to palpation, non-tender and no masses PALPATION: Yes Soft to palpation Extremity: COMMON NORMALS: normal to inspection and full ROM Neuro: COMMON NORMALS: patient oriented x3, moves all extremities and no focal motor deficits Psych: COMMON NORMALS: mental status grossly normal, Normal thought process present and cooperative THOUGHT PROCESS: Normal thought process present Skin: COMMON NORMALS: no wounds OTHER: macular papular rash to legs arms and trunk Course Vital Signs: Vital signs: Vital Signs Temperature 98.3 F 09/26/20 01:33 Pulse Rate 99 09/26/20 01:35 Respiratory Rate 17 09/26/20 01:35 Blood Pressure 136/96 09/26/20 01:33 Pulse Oximetry 98 09/26/20 01:35 MDM - Allergic Reaction MDM Narrative: Medical decision making narrative: Patient presents here with allergic reaction. Her rash is much improved here after Pepcid Solu-Medrol and Benadryl. We will start her on a 5-day course of steroids and she is to follow- up with PCP and return if worsening. Discharge Plan Discharge Patient Disposition: Home Clinical Impression: Allergic reaction Qualifiers: Encounter type: initial encounter Qualified Code(s): T78.40XA - Allergy, unspecified, initial encounter Condition: Stable Prescriptions: New prednisone 50 mg tablet 50 mg PO DAILY Qty: 5 RF: 0 No Action sulfamethoxazole-trimethoprim [Bactrim DS] 800-160 mg tablet 1 tab PO BID 7 Days Qty: 14 RF: 0 metformin 500 mg tablet extended release 24 hr 500 mg PO BID Qty: 60 RF: 0 amlodipine 5 mg tablet 5 mg PO DAILY Qty: 90 RF: 0 Hair,Skin and Nails Tablet 1 tab PO DAILY RF: 0 Adult Aspirin Regimen 81 mg tablet,delayed release (DR/EC) 81 mg PO DAILY Qty: 30 RF: 0 Plavix 75 mg tablet 75 mg PO DAILY Qty: 30 RF: 0 Lipitor 20 mg tablet 20 mg PO DAILY Qty: 30 RF: 0 Discharge Orders: Discharge ED (Routine); Ordered 09/26/20 Ordered By: Feroz Ramos Referrals: Jing Calzada DO [Primary Care Provider] - Discharge Diet: Advance as tolerated Discharge Activity: Resume usual activity Patient Instructions: Allergic Reaction, Urticaria (ED) Coding Level of Care Code ED Agent Producer for Chg Fwd Exam Comprehensive
[2020-09-26] MEDS: famotidine 20 mg/2 mL INJ 40 MG IVP (01:43)
[2020-09-26] MEDS: diphenhydrAMINE 50 mg/mL SDV 1mL IVP (01:45)
[2020-09-26 02:23] VITALS: BP 149/104; PULSE 92; RESP 18; O2SAT 98
== END 2020-09-26 02:23 | disposition home or self-care (01) ==
PROVIDERS: Emergency Provider Emergency Medicine; PCP Family Medicine
DX: T78.40XA Allergy, unspecified, initial encounter (principal); Z79.82 Long term (current) use of aspirin; Z79.02 Long term (current) use of antithrombotics/antiplatelets; I10 Essential (primary) hypertension; E11.9 Type 2 diabetes mellitus without complications
CPT/HCPCS: 96374; 96375; 99283; J1200; J2930; J3490

== ENCOUNTER → 2020-10-03 09:35 | Outpatient (BNVA) | payer SELFPAY | PROVIDERS: PCP Family Medicine; Visit Provider Specialist | DX: E11.65 Type 2 diabetes mellitus with hyperglycemia (principal); Z79.84 Long term (current) use of oral hypoglycemic drugs; I10 Essential (primary) hypertension; Z86.73 Personal history of transient ischemic attack (TIA), and cerebral infarction without residual deficits | CPT/HCPCS: 99215 ==

== ENCOUNTER 2020-10-16 06:00 | Outpatient (CLI) | payer MEDICAID, SELFPAY | END 2020-10-16 06:01 | disposition home or self-care (01) | LOC: LAB 08-30 14:14 | PROVIDERS: PCP Family Medicine; Visit Provider Family Medicine | DX: E11.65 Type 2 diabetes mellitus with hyperglycemia (principal); I10 Essential (primary) hypertension | CPT/HCPCS: 80053; 80061; 82043; 83036 ==

== ENCOUNTER → 2020-11-01 12:53 | Outpatient (BNVA) | payer MEDICAID, SELFPAY | PROVIDERS: PCP Family Medicine; Visit Provider Obstetrics & Gynecology | DX: N95.0 Postmenopausal bleeding (principal) | CPT/HCPCS: 88175 ==

== ENCOUNTER → 2020-11-08 15:56 | Outpatient (BNVA) | payer MEDICAID, SELFPAY | PROVIDERS: PCP Family Medicine; Visit Provider Obstetrics & Gynecology | DX: N95.0 Postmenopausal bleeding (principal) | CPT/HCPCS: 76830 ==

== ENCOUNTER → 2020-12-04 10:30 | Outpatient (BNVA) | payer OTHER, SELFPAY | PROVIDERS: PCP Family Medicine; Referring Provider Internal Medicine; Visit Provider Internal Medicine | DX: Z01.818 Encounter for other preprocedural examination (principal); Z20.822 Contact with and (suspected) exposure to COVID-19 | CPT/HCPCS: 87635; 99282 ==

== ENCOUNTER 2020-12-08 10:56 | Day surgery (SDC) | payer MEDICAID, SELFPAY ==
[2020-12-06 11:18] VITALS: BMI 25.5
--- NOTE | 2020-12-08 11:16 | USCV_ITS ---
Kim Lara Age: 60 Gender: F : 1960 Exam Date: 12/08/2020 12:26 Ordering Phys: Marcel Mohan M.D ([email or web address]) Technologist: Ernestine Love [place] [facility] [place]: CVA BP: 140 / 91 HR: Rhythm: Sinus Technical Quality: MEASUREMENTS (Male / Female) Normal Values Medications Complications Proc. Components FINDINGS Left Ventricle Normal LV systolic function Right Ventricle Normal in size and function Right Atrium Grossly normal Left Atrium Normal LA Appendage No thrombus noted IA Septum Normal Mitral Valve Normal in structure. No significant mitral regurgitation noted Aortic Valve Normal tricuspid aortic valve Tricuspid Valve Normal tricuspid valve. No significant Tricuspid regurgitation is noted Pulmonic Valve Pericardium Normal Aorta Grossly normal CONCLUSIONS LV systolic function is normal No left atrial appendage thrombus is seen No gross valvular abnormalities Marcel Mohan MD (Electronically Signed) Final Date: 20 December 2020 12:14 S
--- NOTE | 2020-12-08 11:19 | P.ANESASSM_ITS ---
Pre-Anesthetic Assessment Pre-Anesthetic Assessment: Height/Weight: Height 1.63 m Weight 67.585 kg Preop Diagnosis: stroke Proposed Procedure: Operation Date: 12/08/20 12:00 Proposed Procedures p LILLIANA(Not Applicable) - Marcel Mohan M.D Familial anesthetic complications: None Was Beta Matthew taken within 24 hours: N/A Was Clonidine taken within 24 hours: N/A Last intake: > 8 hrs Social: Social History: No alcohol and No tobacco Exam: Pre-Anes Outpt Exam: alert, oriented x 3, clear to auscultation bilaterally and regular rate & rhythm Airway: Cervical ROM: WNL MP: 1 Dentition: Other (missing) CV/HEM: CV/HEM: HTN Metabolic: Metabolic: DM Anesthetic Plan: ASA status: 2 Anesthesia: MAC Risk of > 500 ml blood loss (7ml/kg in children): No PFSH Anesthesia PFSH: Medical History Hypertension 08/2020--diagnosed when she had a hemorrhagic stroke. 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 Currently just on aspirin No pertinent past medical history Denies asthma, seizures, DVT/PE PCP: Dr Calzada Type 2 diabetes mellitus, without long-term current use of insulin Diagnosed in 2012 and is on medication. 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 not have an therapeutic recreation leader Surgical History H/O section X 1 in 1984--vertical midline infraumbilical incision Family History Grandmother Breast cancer paternal, diagnosed in her 60s Family/Other Diabetes maternal aunt Denies family history of Colon cancer Ovarian cancer Heart disease Hyperlipidemia Hypertension Uterine cancer Thyroid condition Stroke Social History Smoking and tobacco status: never smoked Alcohol intake: never History of recent travel: No Data Anesthesia Cardiac Studies: Cardiac Event Monitor 09/19/20
--- NOTE | 2020-12-08 11:25 | P.HP_ITS ---
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 Kelly for assessing cardiac cause of stroke. Plan for LILLIANA to rule out thrombus ROS CONSTITUTIONAL: No fever chills weight loss or gain or night sweats. [] HEENT: Normocephalic, atraumatic.[] RESPIRATORY: No cough, sputum, hemoptysis or wheezing.[] CARDIOVASCULAR: No shortness of breath, chest pain, PND, orthopnea, lower extremity edema, presyncope or syncope. [] GI: no nausea vomiting diarrhea. [] TUNNEL FORM PLACING SUPERVISOR: No numbness, tingling, weakness or loss of function in any part of the body. [] MUSCULOSKELETAL: No knee or joint pain or rashes. [] Medications/Allergies* Home Medications Medication Instructions Recorded Confirmed Type multivitamin with minerals 1 tab PO DAILY 09/11/20 12/06/20 History [Hair,Skin and Nails] amlodipine 10 mg PO BID 12/06/20 12/06/20 History Allergies/Adverse Reactions Allergy/AdvReac Type Severity Reaction Status Date / Time canagliflozin [From Invokana] Allergy Intermediate ALGY-Rash Verified 11/27/20 09:58 Pertinent History/Comorbid Conditions* Medical History (Updated 11/02/20 @ 10:37 by Marina Gray MD) Hypertension 08/2020--diagnosed when she had a hemorrhagic stroke. 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 Currently just on aspirin No pertinent past medical history Denies asthma, seizures, DVT/PE PCP: Dr Calzada Type 2 diabetes mellitus, without long-term current use of insulin Diagnosed in 2012 and is on medication. 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 not have an e ndocrinologist Surgical History (Updated 11/02/20 @ 10:37 by Marina Gray MD) H/O section X 1 in 1984--vertical midline infraumbilical incision Family History (Updated 11/01/20 @ 09:48 by Jing Mccartney, GRISEL) Diabetes Family/Other maternal aunt Breast cancer Grandmother paternal, diagnosed in her 60s Denies family history of Colon cancer Ovarian cancer Heart disease Hyperlipidemia Hypertension Uterine cancer Thyroid condition Stroke Social History Smoking and tobacco status: never smoked Alcohol intake: never History of recent travel: No Pertinent Exam Findings alert, oriented x 3, clear to auscultation bilaterally and regular rate & rhythm Recommendations Surgery/Procedure today (Transesophageal echocardiogram) Coding Level of Care Code Acute Rehab Therapy Manager for Tia Valles
[2020-12-08 11:36] VITALS: BP 151/86; PULSE 89; RESP 18; TEMP 36.6; O2SAT 98
[2020-12-08 11:54] LABS: Glucose Point of Care 159 mg/dL (70-110)
[2020-12-08] MEDS: sodium chloride 0.9% 1,000 ML 30 ML IV (11:54)
[2020-12-08 12:50] VITALS: BP 121/65; PULSE 85; RESP 14; TEMP 36.1; O2SAT 97
[2020-12-08 13:01] VITALS: BP 120/65; PULSE 97; RESP 14; O2SAT 97
--- NOTE | 2020-12-08 18:24 | ANE.PACU2 ---
Inpatient post-anesthesia follow up: Airway intact: Yes Vital signs: Temperature 97 F Pulse Rate 97 Respiratory Rate 14 Blood Pressure 120/65 Pulse Oximetry 97 Oxygen Delivery Me thod Room Air Oxygen Flow Rate Fraction of Inspir ed Oxygen Hydration adequate: Yes Nausea and vomiting: No Pain level: 2 Mental status: Baseline
== END 2020-12-08 13:19 | disposition home or self-care (01) ==
PROVIDERS: PCP Family Medicine; Visit Provider Internal Medicine
PROC: (CPT 93312; principal; 2020-12-08 12:00)
DX: I63.9 Cerebral infarction, unspecified (principal); I10 Essential (primary) hypertension; E11.9 Type 2 diabetes mellitus without complications; Z86.73 Personal history of transient ischemic attack (TIA), and cerebral infarction without residual deficits; Z83.3 Family history of diabetes mellitus; Z80.3 Family history of malignant neoplasm of breast
CPT/HCPCS: 36416; 82962; 93312; 93320; 93325; 96360; J2704; J7030

== ENCOUNTER → 2020-12-13 14:45 | Outpatient (BNVA) | payer MEDICAID, SELFPAY | PROVIDERS: PCP Family Medicine; Visit Provider Specialist | DX: I69.398 Other sequelae of cerebral infarction (principal); H53.461 Homonymous bilateral field defects, right side; E11.9 Type 2 diabetes mellitus without complications; Z79.84 Long term (current) use of oral hypoglycemic drugs | CPT/HCPCS: 99213; 99214 ==

== ENCOUNTER → 2020-12-14 13:00 | Outpatient (BNVA) | payer MEDICAID, SELFPAY | PROVIDERS: PCP Family Medicine; Visit Provider Obstetrics & Gynecology | DX: N95.0 Postmenopausal bleeding (principal) | CPT/HCPCS: 87635 ==

== ENCOUNTER 2020-12-15 06:00 | Outpatient (CLI) | payer MEDICAID, SELFPAY | END 2020-12-15 06:01 | disposition home or self-care (01) | LOC: RADSHAW 08-30 14:50 | PROVIDERS: PCP Family Medicine; Visit Provider Family Medicine | DX: Z01.818 Encounter for other preprocedural examination (principal); N95.0 Postmenopausal bleeding | CPT/HCPCS: 80053; 85025 ==

== ENCOUNTER 2020-12-21 08:24 | Day surgery (SDC) | payer MEDICAID, SELFPAY ==
[2020-12-20 09:47] VITALS: BMI 25.2
[2020-12-21] VITALS (8 sets, daily range): BP systolic 146–160; BP diastolic 87–110; PULSE 76–86; RESP 17–18; TEMP 36.4–36.8; O2SAT 98–100
[2020-12-21 08:50] LABS: Glucose Point of Care 222 mg/dL (70-110)
--- NOTE | 2020-12-21 09:01 | P.HPUD_ITS ---
Surgery/Procedure H&P Update DATE OF PROCEDURE: December 21, 2020 DATE H&P PERFORMED: 11/27/20 H&P UPDATE INFORMATION: I have reviewed H&P completed within last 30 days, I have examined patient prior to procedure, No changes to prior documentation and H[place] is in [facility] [place] on date indicated PREOP DIAGNOSIS: Postmenopausal bleeding PLANNED PROCEDURE: Operation Date: 12/21/20 09:55 Proposed Procedures p Hysteroscopy [id number] N95.0(Not Applicable) - Marina Gray MD s Dilation And Curettage with Myosure [id number] N95.0(Not Applicable) - Marina Gray MD
--- NOTE | 2020-12-21 09:01 | W.PM.OPSUD ---
Surgery/Procedure H&P Update DATE OF PROCEDURE: December 21, 2020 DATE H&P PERFORMED: 11/27/20 H&P UPDATE INFORMATION: I have reviewed H&P completed within last 30 days, I have examined patient prior to procedure, No changes to prior documentation and H&P is in [facility] [place] on date indicated PREOP DIAGNOSIS: Postmenopausal bleeding PLANNED PROCEDURE: Operation Date: 12/21/20 09:55 Proposed Procedures p Hysteroscopy [id number] N95.0(Not Applicable) - Marina Gray MD s Dilation And Curettage with Myosure [id number] N95.0(Not Applicable) - Marina Gray MD
[2020-12-21] MEDS: sodium chloride 0.9% 1,000 ML 30 ML IV (09:11)
[2020-12-21] MEDS: insulin regular-human 100 units/1 mL 10 UNIT IVP (09:33)
[2020-12-21 10:06] LABS: Glucose Point of Care 189 mg/dL (70-110)
--- NOTE | 2020-12-21 10:11 | ANES.PREANE2 ---
Pre-Anesthetic Assessment Pre-Anesthetic Assessment: Height/Weight: Height 1.63 m Weight 66.678 kg Temp Pulse Resp BP Pulse Ox 97.2 F L 18 L 18 106/61 100 12/21/20 09:24 12/21/20 09:24 12/21/20 09:24 12/21/20 09:24 12/21/20 09:24 Preop Diagnosis: Postmenopausal bleeding Proposed Procedure: Operation Date: 12/21/20 09:55 Proposed Procedures p Hysteroscopy 82404 27614 N95.0(Not Applicable) - Marina Gray MD s Dilation And Curettage with Myosure [id number] N95.0(Not Applicable) - Marina Gray MD Familial anesthetic complications: None Was Beta Matthew taken within 24 hours: N/A Was Clonidine taken within 24 hours: N/A Last intake: Intake Last Liquid Date 12/20/20 Last Liquid Time 17:00 Last Solid Date 12/21/20 Last Solid Time 17:00 Social: Social History: No alcohol and No tobacco Exam: Pre-Anes Outpt Exam: alert, oriented x 3, clear to auscultation bilaterally and regular rate & rhythm Airway: Cervical ROM: WNL MP: 3 Dentition: Full and Other (missing) CV/HEM: CV/HEM: HTN Metabolic: Metabolic: DM Neuropsych: Neuropsych: TIA (X2 on ASA) Anesthetic Plan: ASA status: 3 Anesthesia: General Risk of > 500 ml blood loss (7ml/kg in children): No Meds/Allergies Current Medications: Current Medications Generic Name Dose Route Start Last Admin Trade Name Freq PRN Reason Stop Dose Admin Sodium Chloride 1,000 mls @ 30 ml s/hr 12/21/20 08:45 12/21/20 09:11 Sodium Chloride 0.9% IV 12/22/20 08:44 30 mls/hr .Q24H JOSE Administration PFSH Anesthesia PFSH: Medical History Hypertension 08/2020--diagnosed when she had a hemorrhagic stroke. 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 Currently just on aspirin No pertinent past medical history Denies asthma, seizures, DVT/PE PCP: Dr Calzada Type 2 diabetes mellitus, without long-term current use of insulin Diagnosed in 2012 and is on medication. 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 professor Surgical History H/O section X 1 in 1984--vertical midline infraumbilical incision Family History Grandmother Breast cancer paternal, diagnosed in her 60s Family/Other Diabetes maternal aunt Denies family history of Colon cancer Ovarian cancer Heart disease Hyperlipidemia Hypertension Uterine cancer Thyroid condition Stroke Social History Smoking and tobacco status: never smoked Alcohol intake: never History of recent travel: No Data Anesthesia Other Labs: Laboratory Results - last 48 hr 12/21/20 12/21/20 08:47 10:03 POC Glucose 222 H 189 H Cardiac Studies: Cardiac Event Monitor 09/19/20
--- NOTE | 2020-12-21 10:19 | PC.NURSE ---
hydrocodone was ordered in error. This pt did not receive hydrocodone at this time. Pharmacy notified.
[2020-12-21 10:54] LABS: Basophils # 0.1 10^3/uL (0.0-0.1); Basophils % 1.1 %; Eosinophils # 0.1 10^3/uL (0.0-0.8); Eosinophils % 1.7 %; Hematocrit 38.9 % (37.0-47.0); Hemoglobin 13.5 g/dL (11.5-15.3); Lymphocytes # 2.3 10^3/uL (0.8-4.8); Lymphocytes % 36.2 %; Mean Corpuscular HGB Conc 34.7 g/dL (30.0-36.0); Mean Corpuscular Hemoglobin 29.3 pg (28.0-34.0); Mean Corpuscular Volume 84.4 fl (81-99); Mean Platelet Volume 12.6 fL (7.4-10.4); Monocytes # 0.4 10^3/uL (0.2-0.9); Monocytes % 5.9 %; Neutrophils # 3.55 10^3/uL (1.8-7.7); Neutrophils % 54.8 %; Nucleated Red Blood Cells % 0 %; Platelet Count 324 10^3/cmm (130-400); Red Blood Count 4.61 10^6/uL (4.1-5.3); Red Cell Distribution Width 11.5 % (12.1-15.1); White Blood Count 6.5 10^3/uL (4.0-10.0)
--- NOTE | 2020-12-21 11:51 | PM.OP ---
Operative Report Date of procedure: December 21, 2020 OPERATIVE REPORT Date of surgery: 12/21/2020 Date of dictation: 12/21/2020 Preoperative diagnosis: Postmenopausal bleeding Postoperative diagnosis/findings: Same, 8 to 9-week size retroverted uterus, on hysteroscopy normal endocervical canal-cavity appeared to be deviated to the left. Endo medial cavity was distorted with multiple growths and a mass appearing to come off the right endometrial wall. Bilateral ostia visualized. Fluid deficit 400 mL Procedure done: Hysteroscopy, D&C with MYOSURE, Specimens removed/disposition of specimens: Endometrial curettings sent to pathology Surgeon: Dr. Marina Curry Balloon Pilot: Tana Anesthesia: Laryngeal mask anesthesia Estimated blood loss: 25 ml Intravenous fluids: 500 mL of LR Urine output: 50 mL of clear urine at the end of procedure Medications: As per anesthesia records Complications: None, patient was taken to the recovery room in a stable condition. PROCEDURE: After consent was obtained patient was taken to the operating room where she is placed under laryngeal mask anesthesia without any difficulty. She was placed supine on the table in lithotomy position. Care was taken to ensure that her legs were well positioned to avoid pressure points. She was then prepped and draped in the usual sterile fashion. Exam under anesthesia was done at this time which showed findings noted above. The weighted speculum and lateral vaginal wall retractors were placed in the vagina and the cervix was visualized. The cervix appeared normal and tenaculum was applied. The cervix was dilated to a 15 Navarro dilator. This allowed placement of a 3 mm hysteroscope into the uterine cavity without any difficulty. Once the hysteroscope was placed in the uterine cavity, the endocervical canal was visualized and findings noted above.using the Chacon sure multiple biopsies were taken especially of the mass arising from the right side. Take care was taken not to take too much tissue. The Chacon sure device was removed without any difficulty. No active bleeding was noted from the cervix. Tenaculum was removed and hemostasis achieved with silver nitrate.. Good hemostasis was achieved. All instruments were removed from the vagina. Patient was cleaned well and anesthesia was reversed without any difficulty. She was taken to the recovery in a stable condition. FOLLOW UP: Follow-up in 2 weeks and 6 weeks with surgeon MEDICATION ON DISCHARGE: Colace 100 mg by mouth every 12 hours when necessary constipation, 30 tablets, no refills Ibuprofen 200 mg every 6 hours as needed pain. Continue other home medications DISPOSITION: Home in a stable condition This documentation was created by [employer] personal development coach software (known for inherent personal development coach error). Every effort was made to assure accuracy of personal development coach. Any obvious errors or omissions should be clarified with the author of the document. Pre-op Diagnosis: Postmenopausal bleeding
--- NOTE | 2020-12-21 19:05 | ANE.PACU2 ---
Inpatient post-anesthesia follow up: Airway intact: Yes Vital signs: Temperature 97.6 F Pulse Rate 84 Respiratory Rate 18 Blood Pressure 146/89 Pulse Oximetry 99 Oxygen Delivery Me thod Room Air Oxygen Flow Rate 8 Fraction of Inspir ed Oxygen Hydration adequate: Yes Nausea and vomiting: No Pain level: 2 Mental status: Baseline
[2020-12-29 09:06] LABS: Miscellaneous Test See Scanned Lab Rpt
== END 2020-12-21 13:14 | disposition home or self-care (01) ==
PROVIDERS: PCP Family Medicine; Visit Provider Obstetrics & Gynecology
PROC: (CPT 58120; 2020-12-21 09:45)
PROC: 0UDB8ZZ Extraction of Endometrium, Via Natural or Artificial Opening Endoscopic (ICD-10-PCS; CPT 58558; 2020-12-21 09:45)
DX: N95.0 Postmenopausal bleeding (principal); I10 Essential (primary) hypertension; E11.9 Type 2 diabetes mellitus without complications; Z86.73 Personal history of transient ischemic attack (TIA), and cerebral infarction without residual deficits; Z79.82 Long term (current) use of aspirin
CPT/HCPCS: 58558; 36415; 36416; 82962; 85025; 86850; 86900; 88305; 88341; 88342; J1815; J7030

== ENCOUNTER 2021-06-07 15:16 | Emergency (ER) | payer MEDICAID, SELFPAY ==
[2021-06-07 15:33] VITALS: BP 138/93; PULSE 105; RESP 16; TEMP 36.7; O2SAT 100; BMI 25.7
--- NOTE | 2021-06-07 16:12 | W.ED.EXTPRO ---
HPI - Extremity Problem General: Chief complaint: Extremity Problem,Nontraumatic Stated complaint: Red spot on L elbow Time Seen by Provider: 06/07/21 15:36 History of Present Illness: Patient said she had some redness and swelling to posterior surface of her left arm near her elbow. She said this been going on for 2 3 days. Patient says she fell yesterday and it broke open and a lot of drainage come out and has improved markedly since then. Not sure whether she had a fever or not. Associated symptoms: Deny chest pain, fever(s) or rash Review of Systems Const: Denies: fever(s), chills or body aches Eyes: Denies: eye discomfort ENMT: Denies: throat pain Card: Denies: chest pain Resp: Denies: dyspnea GI: Denies: abdominal pain, nausea or vomiting Skin/Breast: Reports: erythema, skin swelling and other (Drainage near left elbow area); Denies: rash Neuro: Denies: headache(s) Psych: Denies: depression or suicidal ideation PFS ED PFSH: Medical History (Updated 06/07/21 @ 15:43 by ABBY Barragan) Hypertension 08/2020--diagnosed when she had a hemorrhagic stroke. 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 Currently just on aspirin No pertinent past medical history Denies asthma, seizures, DVT/PE PCP: Dr Calzada Type 2 diabetes mellitus, without long-term current use of insulin Diagnosed in 2012 and is on medication. 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 Performed by Dr. Bakari werner in [place]. (scanned) ----> Pathology showed endometrioid carcinoma Fiegel grade 2-18% myometrial invasion with free surgical margins. Myometrium showed adenomyosis and bilateral tubes ovaries cervix and all lymph nodes were negative for cancer. Status post hysteroscopy 12/21/2020---hysteroscopy dilation and curettage with MyoSure for postmenopausal bleeding by Dr. Curry at [facility] [place]. 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 Family History Grandmother Breast cancer paternal, diagnosed in her 60s Family/Other Diabetes maternal aunt Denies family history of Colon cancer Ovarian cancer Heart disease Hyperlipidemia Hypertension Uterine cancer Thyroid condition Stroke Social History Smoking and tobacco status: never smoked Alcohol intake: never History of recent travel: No Physical Exam Const: COMMON NORMALS: no acute distress, patient oriented x3 and alert HENMT: COMMON NORMALS: normocephalic HEAD & SCALP: normocephalic Eye: COMMON NORMALS: EOMs intact bilaterally Neck/C-Spine: COMMON NORMALS: no JVD Resp: COMMON NORMALS: normal respiratory effort and No use of accessory muscles Cardio: COMMON NORMALS: no JVD GI: INSPECTION: Yes normal to inspection Extremity: COMMON NORMALS: full ROM LEFT UPPER EXTREMITY: Yes lower arm (Mild redness/abscess near left elbow approximately 2 inches away) Left lower arm: Yes palpation (Slight amount of pus oozing from wound.) and Yes other (Redness about half dollar size with slight fluctuant area in the center) Neuro: COMMON NORMALS: patient oriented x3 SENSORIUM/ORIENTATION: Yes alert Psych: COMMON NORMALS: mental status grossly normal Skin: COMMON NORMALS: no rashes or lesions noted GENERAL SKIN EXAM: no rashes or lesions noted Course Vital Signs: Vital signs: Vital Signs Temperature 98.1 F 06/07/21 15:33 Pulse Rate 105 H 06/07/21 15:33 Respiratory Rate 16 06/07/21 15:33 Blood Pressure 138/93 06/07/21 15:33 Pulse Oximetry 100 06/07/21 15:33 MDM - Extremity (Nontraumatic) Medical Decision Making Cellulitis/abscess left arm. Treated with antibiotics. Patient follow-up primary care provider. Discharge Plan Discharge Patient Disposition: Home Clinical Impression: Cellulitis Condition: Stable Prescriptions: New clindamycin HCl 300 mg capsule 300 mg PO Q8H 7 Days Qty: 21 0RF No Action Januvia 50 mg tablet 50 mg PO DAILY 90 Days Qty: 90 0RF Rx Instructions: 340 B metformin 500 mg tablet extended release 24 hr 1,000 mg PO BID 90 Days Qty: 360 0RF multivitamin with minerals [Hair,Skin and Nails] Tablet 1 tab PO DAILY 0RF aspirin [Adult Aspirin Regimen] 81 mg tablet,delayed release (DR/EC) 81 mg PO DAILY Qty: 30 0RF amlodipine 10 mg tablet 10 mg PO BID 0RF Discharge Orders: Discharge ED (Routine); Ordered 06/07/21 Ordered By: Cyril Casiano Referrals: Jing Calzada DO [Primary Care Provider] - Discharge Diet: Usual diet Discharge Activity: Resume usual activity Patient Instructions: Cellulitis (ED) Activity Restrictions/Additional Instructions: Follow-up with medical provider as directed. Take medications as prescribed. Return to the ER or your medical provider if condition worsens. Please read and understand discharge instructions. If any questions ask please. Coding Level of Care Code ED Chicle Grinder Feeder for Tia Valles
== END 2021-06-07 15:52 | disposition home or self-care (01) ==
PROVIDERS: Emergency Provider Nurse Practitioner Family; PCP Family Medicine
DX: L03.114 Cellulitis of left upper limb (principal); Z79.84 Long term (current) use of oral hypoglycemic drugs; Z79.82 Long term (current) use of aspirin; I10 Essential (primary) hypertension; E11.9 Type 2 diabetes mellitus without complications; Z86.73 Personal history of transient ischemic attack (TIA), and cerebral infarction without residual deficits
CPT/HCPCS: 87070; 87077; 87186; 99282

== ENCOUNTER 2022-07-03 17:25 | Emergency (ER) | payer MEDICAID, SELFPAY ==
[2022-07-03 17:30] VITALS: BP 163/81; PULSE 107; RESP 18; TEMP 36.3; O2SAT 98
--- NOTE | 2022-07-03 17:43 | ED_ITS ---
HPI - Animal Bite General: Chief Complaint: Animal Bite Stated Complaint: Dog Bite Time Seen by Provider: 07/03/22 17:32 History of Present Illness: Patient is a 61-year-old female comes to the ED with dog bite. Patient was walking down the street when a random home steelworker came out of his house and his dog slipped out passed him. The dog ran out and bit patient's right forearm. Patient was wearing a coat at the time and did not think that the dog bite punctured any skin. When she got home and took off her coat she noticed that she had some bleeding and some bite wounds to her forearm. Patient knows the home steelworker and he states that dog has had all its shots including its rabies shots and he has the records at home. Associated symptoms: Deny chills, fever(s) or headache(s) Review of Systems Const: Denies: fever(s), chills or fatigue Eyes: Denies: change in vision or eye discomfort ENMT: Denies: throat pain, odynophagia, nasal discharge or nasal congestion Card: Denies: chest pain, palpitations, edema, swelling of feet/ankles, dyspnea on exertion or orthopnea Resp: Denies: dyspnea, productive cough or non-productive cough GI: Denies: abdominal pain, nausea, vomiting, diarrhea, constipation or hematochezia : Denies: flank pain, dysuria or hematuria Musc: Denies: neck pain, back pain or extremity swelling Skin/Breast: Reports: new lesions (Dog bite to right forearm); Denies: rash Neuro: Denies: headache(s), numbness in extremities or weakness in extremities [facility] ED PFSH: Medical History (Updated 07/03/22 @ 19:01 by MORRO Salguero) Hypertension 08/2020--diagnosed when she had a hemorrhagic stroke. 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 Currently just on aspirin No pertinent past medical history Denies asthma, seizures, DVT/PE PCP: Dr Calzada Type 2 diabetes mellitus, without long-term current use of insulin Diagnosed in 2012 and is on medication. 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 Performed by Dr. Bakari werner in [place]. (scanned) ----> Pathology showed endometrioid carcinoma Fiegel grade 2-18% myometrial invasion with free surgical margins. Myometrium showed adenomyosis and bilateral tubes ovaries cervix and all lymph nodes were negative for cancer. Status post hysteroscopy 12/21/2020---hysteroscopy dilation and curettage with MyoSure for postmenopausal bleeding [place] [facility] [place] ------> pathology showed endometrial adenocarcinoma and patient referred to [facility] oncology Family History Grandmother Breast cancer paternal, diagnosed in her 60s Family/Other Diabetes maternal aunt Denies family history of Colon cancer Ovarian cancer Heart disease Hyperlipidemia Hypertension Uterine cancer Thyroid condition Stroke Social History Smoking and tobacco status: never smoked Alcohol intake: never Physical Exam Const: COMMON NORMALS: no acute distress, patient oriented x3, healthy appearing and alert GENERAL APPEARANCE: cooperative and comfortable HENMT: COMMON NORMALS: normocephalic HEAD & SCALP: normocephalic MOUTH: Normal oral and palatal mucosa present THROAT: posterior oropharynx normal and uvula midline Neck/C-Spine: COMMON NORMALS: supple GENERAL: Yes normal visual inspection Resp: COMMON NORMALS: normal respiratory effort, No retractions, No use of accessory muscles and clear to auscultation bilaterally AUSCULTATION: clear to auscultation bilaterally Cardio: COMMON NORMALS: regular rate, regular rhythm, S1 normal heart sound present, S2 normal heart sound present, No gallops present (Cardio), No clicks present (Cardio), No murmurs present (Cardio) and Peripheral pulses 2+ throughout RATE: regular rate RHYTHM: regular rhythm HEART SOUNDS: S1 normal heart sound present and S2 normal heart sound present PERIPHERAL PULSES: Peripheral pulses 2+ throughout GI: COMMON NORMALS: Normal to inspection, nondistended, normoactive bowel sounds present, Soft to palpation, non-tender and no masses PALPATION: Yes Soft to palpation : COMMON NORMALS: Yes no CVA tenderness BLADDER/KIDNEY EXAM: Yes no CVA tenderness Back/Pelvis: COMMON NORMALS: no CVA tenderness Extremity: COMMON NORMALS: full ROM Neuro: COMMON NORMALS: patient oriented x3 SENSORIUM/ORIENTATION: Yes alert GAIT: Yes Normal gait present Skin: NARRATIVE SKIN EXAM: Right forearm?multiple superficial puncture wounds noted. No active bleeding or drainage seen. 1 bite wound is larger and approximately 1 cm in length. GENERAL SKIN EXAM: dry skin Procedures Laceration Laceration 1: Site: upper extremity (Forearm) Size (cm): 1 Description: linear and clean Depth: simple, single layer Local Anesthetic: lidocaine 1% Amount of anesthesia used (mL): 5 Pre-repair: irrigated extensively (With normal saline and beta iodine) Skin layer closed with: nylon Size (cm): 4-0 Number of sutures: 2 Technique: simple, interrupted Course Vital Signs: Vital signs: Vital Signs Temperature 97.4 F L 07/03/22 17:30 Pulse Rate 108 H 07/03/22 19:13 Respiratory Rate 16 07/03/22 19:13 Blood Pressure 167/88 07/03/22 19:13 Pulse Oximetry 98 07/03/22 19:13 Oxygen Delivery Me thod 07/03/22 17:30 MDM - Animal Bite Medical Decision Making Patient is a 61-year-old female comes to the ED with dog bite. Patient was walking down the street when a random home steelworker came out of his house and his dog slipped out passed him. The dog ran out and bit patient's right forearm. Patient was wearing a coat at the time and did not think that the dog bite punctured any skin. When she got home and took off her coat she noticed that she had some bleeding and some bite wounds to her forearm. Patient knows the home steelworker and he states that dog has had all its shots including its rabies s hots and he has the records at home. Vital stable. Right forearm?multiple superficial puncture wounds noted. No active bleeding or drainage seen. 1 bite wound is larger and approximately 1 cm in length. Patient was given updated tetanus here in the ED. Dog bite wound was irrigated since with normal saline and iodine wash. Lidocaine 1% with epi was used as local and the 1 cm in length dog bite wound was closed using 2 sutures. Right forearm x-ray showed no foreign body or no osseous abnormalities. Patient told to make sure that dogs shot records are up-to-date including rabies vaccination. Patient was diagnosed with dog bite and sent home with a prescription for Augmentin. Return to ED precautions given. Patient told to have sutures removed in the next 7 to 10 days for reevaluation. Patient understood and agreed with plan. Lab Data Radiology Impressions Forearm X-Ray 07/03/22 18:23 IMPRESSION: Wound/soft tissue swelling noted at the proximal forearm. No radiopaque foreign body. No osseous abnormalities. Discharge Plan Discharge Patient Disposition: Home Clinical Impression: Dog bite Qualifiers: Encounter type: initial encounter Qualified Code(s): W54.0XXA - Bitten by dog, initial encounter Condition: Stable Prescriptions: New amoxicillin-pot clavulanate 500-125 mg tablet 1 tab PO BID 7 Days Qty: 14 0RF No Action Januvia 50 mg tablet 50 mg PO DAILY 90 Days Qty: 90 0RF Rx Instructions: 340 B metformin 500 mg tablet extended release 24 hr 1,000 mg PO BID 90 Days Qty: 360 0RF multivitamin with minerals [Hair,Skin and Nails] Tablet 1 tab PO DAILY aspirin [Adult Aspirin Regimen] 81 mg tablet,delayed release (DR/EC) 81 mg PO DAILY Qty: 30 0RF amlodipine 10 mg tablet 10 mg PO BID Discharge Orders: Discharge ED (Routine); Ordered 07/03/22 Ordered By: Ramon Huber Referrals: Jing Calzada DO [Primary Care Provider] - Discharge Diet: Regular Discharge Activity: Increase activity as tolerated Patient Instructions: Animal Bite (ED) Activity Restrictions/Additional Instructions: Take full course of antibiotics as prescribed. Keep dog bite clean and dry. Do not submerge wound in any bodies of water such as lakes or seay until completely healed. Clean daily with soap and water and then apply thin layer of triple antibiotic ointment on it and cover with bandage. Watch for signs of infection such as redness, warmth, increased tenderness and puslike drainage. If you see the signs of infection return to the ED, urgent care or PCP for reevaluation. call your PCP to schedule a follow-up appointment for reevaluation and suture removal in about 7-10 days. Continue taking all home meds. Follow discharge plans as discussed. You can return to the ED if symptoms worsen. Coding Level of Care Code ED Supervisor Correspondence Section for Tia Valles
--- NOTE | 2022-07-03 18:23 | XRR_ITS ---
PROCEDURE INFORMATION: Exam: XR Right Forearm Exam date and time: 07/03/2022 6:30 PM Age: 61 years old Clinical indication: Pain; Lower or forearm; Right; Additional info: Dog bite to right forearm, proximal TECHNIQUE: Imaging protocol: Radiologic exam of the right forearm. Views: 2 views. COMPARISON: No relevant prior studies available. FINDINGS: Bones/joints: Osseous structures are intact. Negative for fracture. Soft tissues: Wound/soft tissue swelling noted at the proximal forearm. No radiopaque foreign body. XR/XR forearm RT 2V [id number] IMPRESSION: Wound/soft tissue swelling noted at the proximal forearm. No radiopaque foreign body. No osseous abnormalities.
[2022-07-03 18:27] VITALS: BP 151/73
[2022-07-03] MEDS: tetanus-dipt-pertussis 0.5 mL SDV IM (18:36)
[2022-07-03] MEDS: amoxicillin-clav 500-125 mg Tablet 1 TAB PO (18:37)
[2022-07-03] MEDS: neomycin-poly-bacitracin oint 28 gm 1 APPLIC TOPICAL (18:37)
[2022-07-03] MEDS: lidocaine 1% INJ 20 mL 10 ML INJECTION (18:42)
[2022-07-03 19:13] VITALS: BP 167/88; PULSE 108; RESP 16; O2SAT 98
== END 2022-07-03 19:13 | disposition home or self-care (01) ==
PROVIDERS: Emergency Provider Physician Assistant; PCP Family Medicine
DX: S51.851A Open bite of right forearm, initial encounter (principal); E11.9 Type 2 diabetes mellitus without complications; I10 Essential (primary) hypertension; Z79.84 Long term (current) use of oral hypoglycemic drugs; Z79.82 Long term (current) use of aspirin; Z86.73 Personal history of transient ischemic attack (TIA), and cerebral infarction without residual deficits; W54.0XXA Bitten by dog, initial encounter; Y92.410 Unspecified street and highway as the place of occurrence of the external cause
CPT/HCPCS: 12001; 73090; 90471; 90715; 99283

== ENCOUNTER 2022-08-15 13:56 | Emergency (ER) | payer MEDICAID, SELFPAY ==
[2022-08-15 14:06] VITALS: BP 185/104; PULSE 117; RESP 18; TEMP 36.2; O2SAT 98; BMI 22.8
--- NOTE | 2022-08-15 14:18 | XR_ITS ---
WS: [id number] Exam: XR finger LT min 2V [id number] Date/Time of Exam: 08/15/2022 2:19 PM Reason For Exam: thumb; pain The thumb is targeted for radiographic evaluation. No fracture or dislocation noted. Minimal degenerative change of the DIP joint. Normal soft tissues. XR/XR finger LT min 2V [id number] IMPRESSION: 1. Minimal degenerative change. The thumb is otherwise negative.
--- NOTE | 2022-08-15 14:18 | ED_ITS ---
HPI - Extremity Problem General: Chief complaint: Extremity Injury, Upper Stated complaint: finger injury Time Seen by Provider: 08/15/22 14:12 Source: patient Mode of arrival: ambulatory Limitations: no limitations History of Present Illness: Patient is a 62-year-old female who presents to the ED today with complaint of left thumb pain over the past several days. She feels like the base of her thum b catches and sometimes she has to manually manipulate the MCP joint in order to get it to release. Not had any injury or trauma to the digit. She has not noticed any redness or swelling. Patient also would like me to evaluate possibly remove stitches from a wound that she was seen for approximately a month ago. She states they placed stitches but believes they have fallen out but would like me to assess for this. MD Complaint: extremity pain (L thumb pain) Onset (ago): day(s) Pain Consistency: intermittent Location: left and upper extremity (thumb) Radiation: none Relieving factors: nothing Exacerbating factors: range of motion Associated symptoms: Reports no associated symptoms Review of Systems Musc: Reports: joint pain (L thumb MCP joint); Denies: joint swelling, joint redness or joint warmth PFSH ED PFSH: Medical History Hypertension 08/2020--diagnosed when she had a hemorrhagic stroke. Managed by PMD Left acute arterial ischemic stroke, DRY KILN FEEDER (posterior cerebral artery) Hemorrhagic stroke in August 2020. Currently just on aspirin No pertinent past medical history Denies asthma, seizures, DVT/PE PCP: Dr Calzada Type 2 diabetes mellitus, without long-term current use of insulin Diagnosed in 2012 and is on medication. 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 Performed by Dr[address] Bakari werner in [place]. (scanned) ----> Pathology showed endometrioid carcinoma Fiegel grade 2-18% myometrial invasion with free surgical margins. Myometrium showed adenomyosis and bilateral tubes ovaries cervix and all lymph nodes were negative for cancer. Status post hysteroscopy 12/21/2020---hysteroscopy dilation and curettage with MyoSure for postmenopausal bleeding [place] [facility] [place]> pathology showed endometrial adenocarcinoma and patient referred to [facility] Family History Grandmother Breast cancer paternal, diagnosed in her 60s Family/Other Diabetes maternal aunt Denies family history of Colon cancer Ovarian cancer Heart disease Hyperlipidemia Hypertension Uterine cancer Thyroid condition Stroke Social History Smoking and tobacco status: never smoked Alcohol intake: never Substance/Drug Use: never Physical Exam Const: COMMON NORMALS: no acute distress, patient oriented x3, no limitations, alert and well nourished Extremity: COMMON NORMALS: normal to inspection, full ROM, capillary refill normal and no clubbing, cyanosis or edema GENERAL: Yes normal exam except as noted LEFT UPPER EXTREMITY: Yes hand & digits (mild tenderness to L MCP joint; no swelling/redness present) Left hand and digits: Yes palpation (some palpable clicking with ROM) and Yes neurovascular exam (normal) Neuro: COMMON NORMALS: patient oriented x3, moves all extremities, no focal motor deficits and no sensory deficits noted SENSORIUM/ORIENTATION: Yes alert Skin: NARRATIVE SKIN EXAM: small healed wound to R volar forearm with no sutures present Course Vital Signs: Vital signs: Vital Signs Temperature 97.1 F L 08/15/22 14:06 Pulse Rate 117 H 08/15/22 14:06 Respiratory Rate 18 08/15/22 14:06 Blood Pressure 185/104 08/15/22 14:06 Pulse Oximetry 98 08/15/22 14:06 Oxygen Delivery Me thod Room Air 08/15/22 14:06 MDM - Extremity (Nontraumatic) Medical Decision Making Symptoms consistent with a trigger finger of the left thumb. Discussed conservative treatments at home. Recommend follow-up with primary care. If conservative treatments do not improve her discomfort she most likely will need orthopedic follow-up. Discharge Plan Discharge Patient Disposition: Home Clinical Impression: Trigger thumb of left hand Condition: Stable Prescriptions: No Action Januvia 50 mg tablet 50 mg PO DAILY 90 Days Qty: 90 0RF Rx Instructions: 340 B metformin 500 mg tablet extended release 24 hr 1,000 mg PO BID 90 Days Qty: 360 0RF multivitamin with minerals [Hair,Skin and Nails] Tablet 1 tab PO DAILY aspirin [Adult Aspirin Regimen] 81 mg tablet,delayed release (DR/EC) 81 mg PO DAILY Qty: 30 0RF amlodipine 10 mg tablet 10 mg PO BID Discharge Orders: Discharge ED (Routine); Ordered 08/15/22 Ordered By: Renetta Bray Referrals: Jing Calzada DO [Primary Care Provider] - Patient Instructions: Trigger Finger (ED) Activity Restrictions/Additional Instructions: As we discussed you may follow up with primary care for this complaint. Initial treatment involves anti-inflammatory medication and possible splinting and avoid avoiding aggravating movements of the thumb. If symptoms do not improve they may refer you for orthopedic follow-up. Coding Level of Care Code ED Director Of Land Acquisition for Tia Valles
== END 2022-08-15 14:56 | disposition home or self-care (01) ==
PROVIDERS: Emergency Provider Physician Assistant; PCP Family Medicine
DX: M65.312 Trigger thumb, left thumb (principal); Z79.82 Long term (current) use of aspirin; Z79.84 Long term (current) use of oral hypoglycemic drugs; I10 Essential (primary) hypertension; E11.9 Type 2 diabetes mellitus without complications; Z86.73 Personal history of transient ischemic attack (TIA), and cerebral infarction without residual deficits
CPT/HCPCS: 73140; 99283

== ENCOUNTER → 2022-12-13 12:17 | Outpatient (BNVA) | payer OTHER, MEDICAID, SELFPAY | PROVIDERS: PCP Family Medicine; Visit Provider Family Medicine | DX: E11.65 Type 2 diabetes mellitus with hyperglycemia | CPT/HCPCS: 80053; 83036; 85025 ==

== ENCOUNTER 2022-12-30 14:34 | Oncology outpatient (recurring) (ONCR) | payer MEDICAID, SELFPAY ==
[2022-12-30 14:55] VITALS: BP 146/84; PULSE 102; RESP 18; TEMP 36.2; O2SAT 96
== END 2023-01-18 23:59 | disposition home or self-care (01) ==
PROVIDERS: PCP Family Medicine; Visit Provider Internal Medicine Medical Oncology
DX: Z53.9 Procedure and treatment not carried out, unspecified reason (principal)

== ENCOUNTER 2023-02-10 08:36 | Outpatient (CLI) | payer OTHER, MEDICAID, SELFPAY ==
[2023-02-10] MEDS: iohexol 350 mg/mL 500 mL Btl (per mL) PO (09:51)
--- NOTE | 2023-02-10 10:00 | CT_ITS ---
WS: [id number] CT CHEST, ABDOMEN, AND PELVIS TECHNIQUE: Contrast-enhanced CT of the chest, abdomen, and pelvis with coronal and sagittal reformatt ed images. CLINICAL INFORMATION: C54.1 - Malignant neoplasm of endometrium COMPARISON: None. DLP: 606.[address] scans at [facility] use at least one of these dose optimization techniques: automated e xposure control; mA and/or kV adjustment per patient size (includes targeted exams where dose is matc hed to clinical indication); or iterative reconstruction. CT CHEST: Normal caliber thoracic aorta. Aortic calcification. Coronary calcification. Normal thyroid gland. No mediastinal or hilar lymphadenopathy. No axillary lymphadenopathy. No acute pulmonary infiltrates. No focal pneumonia or pleural fluid. Both lungs are well aerated. No evidence of metastatic disease in the chest. CT ABDOMEN AND PELVIS: Prior hysterectomy. Urine distended bladder. Normal sigmoid colon. Prominent constipation and fecal r etention in the RIGHT colon and cecum with distention. No evidence of high-grade bowel obstruction. [place] fat-containing umbilical hernia. Normal pancreatic parenchymal enhancement. Normal portal vein and splenic vein. Hepatomegaly. Diffuse fatty filtration of the liver. Normal gallbladder. Normal spleen. Normal GE junction. Celiac and SMA are patent. Normal caliber abdominal aorta. Adrenal glands are normal. Normal renal parenchymal enha ncement. No hydronephrosis. Grade 1 anterolisthesis L4 on L5. No abdominal or pelvic lymphadenopathy. IMPRESSION: 1. No evidence of metastatic disease in the chest, abdomen, or pelvis. 2. Hepatomegaly with diffuse fatty filtration of the liver. 3. Constipation RIGHT colon and cecum. 4. Fat-containing umbilical hernia. 5. Prior hysterectomy.
[2023-02-10] MEDS: iohexol 350 mg/mL 500 mL Btl (per mL) IV (10:14)
== END 2023-02-10 08:37 | disposition home or self-care (01) ==
PROVIDERS: PCP Family Medicine; Visit Provider Specialist
DX: C54.1 Malignant neoplasm of endometrium (principal); K76.0 Fatty (change of) liver, not elsewhere classified; K59.00 Constipation, unspecified; K42.9 Umbilical hernia without obstruction or gangrene; Z90.710 Acquired absence of both cervix and uterus
CPT/HCPCS: 71260; 74177; Q9967

== ENCOUNTER 2023-02-26 08:52 | Outpatient (CLI) | payer OTHER, MEDICAID, SELFPAY ==
--- NOTE | 2023-02-26 08:45 | MR_ITS ---
WS: [id number] MRA CAROTID WITHOUT AND WITH GADOLINIUM ENHANCEMENT TECHNIQUE: Axial 2-D TOF and gadolinium bolus images obtained with axial images and axial, sagittal, and coronal 2-D reformatted images. Gadolinium bolus images degraded due to motion artifact. CLINICAL INFORMATION: G45.9 - Transient cerebral ischemic attack, unspecified COMPARISON: 2020 FINDINGS: RIGHT: RIGHT common carotid artery is patent. No significant RIGHT ICA stenosis. RIGHT ICA is patent to the skull base. LEFT: LEFT common carotid artery is patent. No significant LEFT ICA stenosis. LEFT ICA is patent to t he skull base. LEFT dominant vertebral artery. Smaller but patent RIGHT vertebral artery. Vertebral arteries are pat ent to the basilar junction. Proximal habematolel of [place] partially visualized appears normal. IMPRESSION: 1. No significant ICA stenosis bilaterally. Both ICAs are patent to the skull base. 2. LEFT dominant vertebral artery. Smaller but patent RIGHT vertebral artery. 3. No other suspicious findings.
--- NOTE | 2023-02-26 09:30 | MR_ITS ---
WS: [id number] MRI HEAD WITHOUT CONTRAST TECHNIQUE: Sagittal T1, T2 axial, T2 axial FLAIR, axial and coronal T1 images, axial susceptibility w eighted imaging, axial diffusion weighted images, and coronal T2 images were obtained. CLINICAL INFORMATION: G45.9 - Transient cerebral ischemic attack, unspecified COMPARISON: MRI 09/12/2020 FINDINGS: No evidence of restricted diffusion to suggest acute ischemia. Ventricular system and basal cisterns are patent. Mild supratentorial small vessel changes. Previously described now chronic infarct in the mesial LEFT temporal lobe and parahippocampal gyrus. Tiny chronic lacunar infarct RIGHT cerebellum appears new from previous. Normal vascular flow-voids a t the skull base. No extra-axial fluid collections. No evidence of mass or mass effect. Tiny stable c hronic lacunar infarcts in the RIGHT basal ganglia and bilateral thalamus. Prominent perivascular spa kenn in the basal ganglia. Paranasal sinuses and mastoid air cells are well aerated. Normal parapharyngeal fat. No hemosiderin on the susceptibly weighted images. Normal optic chiasm and pituitary infundibulum. Mild symmetric at rophy temporal lobes and hippocampal formations. Normal optic chiasm and pituitary infundibulum. IMPRESSION: 1. No evidence of restricted diffusion to suggest acute ischemia. 2. Mild supratentorial small vessel changes appears progressed compared to previous. Progressed respiratory director vaughn ischemia in the RIGHT neal radiata. 3. Numerous stable chronic appearing lacunar infarcts in the RIGHT basal ganglia and bilateral thala mus. 4. Tiny chronic lacunar infarct RIGHT cerebellum appears new from previous. 5. No hemosiderin. 6. Mild symmetric atrophy temporal lobes and hippocampal formations.
== END 2023-02-26 08:53 | disposition home or self-care (01) ==
PROVIDERS: PCP Family Medicine; Visit Provider Specialist
DX: G45.9 Transient cerebral ischemic attack, unspecified (principal); R56.9 Unspecified convulsions
CPT/HCPCS: 70548; 70551

== ENCOUNTER → 2023-06-17 10:36 | Outpatient (BNVA) | payer OTHER, SELFPAY | PROVIDERS: PCP Family Medicine; Visit Provider Family Medicine | DX: E11.65 Type 2 diabetes mellitus with hyperglycemia (principal); Z13.6 Encounter for screening for cardiovascular disorders | CPT/HCPCS: 80053; 80061; 83036 ==

== ENCOUNTER → 2023-10-29 10:08 | Outpatient (BNVA) | payer OTHER, SELFPAY | PROVIDERS: PCP Nurse Practitioner Family; Visit Provider Nurse Practitioner Family | DX: I10 Essential (primary) hypertension (principal); E11.65 Type 2 diabetes mellitus with hyperglycemia | CPT/HCPCS: 80053; 80061; 83036; 84443; 85025 ==

== ENCOUNTER 2024-03-08 09:48 | Outpatient (CLI) | payer OTHER, SELFPAY ==
--- NOTE | 2024-03-08 10:02 | XR_ITS ---
WS: [id number] Exam: XR wrist RT 2V [id number] Date/Time of Exam: 03/08/2024 10:16 AM Reason For Exam: WRIST PAIN Comparison 07/03/2022. No acute fracture. Articular relationships are intact. Normal soft tissues. XR/XR wrist RT 2V [id number] IMPRESSION: 1. Unremarkable RIGHT wrist.
== END 2024-03-08 09:49 | disposition home or self-care (01) ==
LOC: RAD 09:53
PROVIDERS: PCP Nurse Practitioner Family; Visit Provider Surgery
DX: Z02.71 Encounter for disability determination (principal); M25.531 Pain in right wrist
CPT/HCPCS: 73100